=== PATIENT | female | born 2000 | race Caucasian/White ===

== ENCOUNTER 2019-12-17 15:55 | Outpatient (CLI) | payer MEDICAID, SELFPAY ==
[2019-12-17] VITALS (13 sets, daily range): BP systolic 0–145; BP diastolic 0–82; PULSE 87–107; RESP 18; TEMP 37.1; BMI 24.7
[2019-12-23 11:36] VITALS: BP 0/0
[2019-12-23 11:37] VITALS: BP 129/69; PULSE 74
== END 2019-12-17 17:55 | disposition home or self-care (01) ==
LOC: OPOB 16:16 → OBGYN 17:46 → OPOB 12-23 08:42
PROVIDERS: Visit Provider Family Medicine
DX: O26.899 Other specified pregnancy related conditions, unspecified trimester (principal); Z3A.00 Weeks of gestation of pregnancy not specified; R10.9 Unspecified abdominal pain
CPT/HCPCS: 59025; 99211

== ENCOUNTER 2019-12-23 20:00 | Inpatient (IN) | payer MEDICAID, SELFPAY ==
[2019-12-23] VITALS (82 sets, daily range): BP systolic 0–150; BP diastolic 0–82; PULSE 50–96; RESP 16–20; TEMP 36.6–36.9; O2SAT 75–99; BMI 24.7
[2019-12-23] MEDS: dextrose 5%-lactated ringers 1,000 ML 125 ML IV (13:03)
[2019-12-23] MEDS: fentaNYL 50 mcg/mL INJ 2mL IV ×2 (13:03→13:59)
[2019-12-23] MEDS: ondansetron 2 mg/ML SDV 2 mL 4 MG IVP (13:43)
[2019-12-23 13:45] LABS: Amphetamines Screen Urine Negative (Negative); Barbiturates Screen Urine Negative (Negative); Benzodiazepines Screen Urine Negative (Negative); Cocaine Screen Urine Negative (Negative); Opiate Screen Urine Negative (Negative); PCP Screen Urine Negative (Negative); THC Screen Urine Positive (Negative)
[2019-12-23 14:18] LABS: Basophils % 0.1 %; Eosinophils % 0.1 %; Hematocrit 37.5 % (37.0-47.0); Hemoglobin 12.2 g/dL (11.5-15.3); Lymphocytes # 1.6 10^3/uL (0.8-4.8); Lymphocytes % 11.5 %; Mean Corpuscular HGB Conc 32.5 g/dL (30.0-36.0); Mean Corpuscular Hemoglobin 28.8 pg (28.0-34.0); Mean Corpuscular Volume 88.4 fL (81-99); Mean Platelet Volume 11.9 fL (7.4-10.4); Monocytes # 0.5 10^3/uL (0.2-0.9); Monocytes % 3.7 %; Neutrophils # 11.5 10^3/uL (1.8-7.7); Neutrophils % 84.2 %; Nucleated Red Blood Cells % 0 %; Platelet Count 167 10^3/cmm (130-400); Red Blood Count 4.24 10^6/uL (4.1-5.3); Red Cell Distribution Width 13.1 % (12.1-15.1); White Blood Count 13.7 10^3/uL (4.0-10.0)
[2019-12-23] MEDS: lactated ringers 1,000 ML 999 ML IV ×2 (14:26→16:39)
--- NOTE | 2019-12-23 14:40 | P.ANESASSM_ITS ---
Pre-Anesthetic Assessment Pre-Anesthetic Assessment: Height/Weight: Height 1.52 m Weight 57.606 kg Pulse Resp BP Pulse Ox 52 L 18 114/63 98 12/23/19 15:29 12/23/19 13:59 12/23/19 15:29 12/23/19 15:28 Preop Diagnosis: IUP 40 1/7 weeks Proposed Procedure: Epidural Familial anesthetic complications: denies Was Beta Lucho taken within 24 hours: N/A Last intake: noon Social: Social History: Tobacco (3 per day) Exam: Pre-Anes Outpt Exam: alert, oriented x 3, clear to auscultation bilaterally and regular rate & rhythm Airway: Submandibular: WNL Cervical ROM: WNL MP: 1 Dentition: Chipped (very poor) History/ROS: No significant history except as noted Pulmonary: Pulmonary: None reported CV/HEM: CV/HEM: None reported : : None reported Hepatic: Hepatic: None reported GI: GI: GERD (ranitidine) Metabolic: Metabolic: None reported Musc/skel: Musc/skel: None reported Neuropsych: Neuropsych: None reported Anesthetic Plan: ASA status: 2 Anesthesia: Anesthesia Evaluation and Regional (specify below) (Labor epidural) Risk of > 500 ml blood loss (7ml/kg in children): No Meds/Allergies Current Medications: Current Medications Generic Name Dose Route Start Last Admin Trade Name Freq PRN Reason Stop Dose Admin Fentanyl 25 - 100 mcg 12/23/19 12:27 12/23/19 13:59 Sublimaze IV 50 mcg Q1H PRN Administration SEVERE PAIN Dextrose/Lactated Ringer's 1,000 mls @ 125 m ls/hr 12/23/19 12:30 12/23/19 13:03 Dextrose 5%-Lact ated Ringers IV 125 mls/hr .Q8H BELA Administration Ondansetron HCl 4 mg 12/23/19 12:27 12/23/19 13:43 Zofran IVP 4 mg Q4H PRN Administration NAUSEA AND VOMITI NG Data Anesthesia CBC & Chem 7: 12/23/19 13:52 Other Labs: Laboratory Results - last 48 hr 12/23/19 12/23/19 12:45 13:52 WBC 13.7 H RBC 4.24 Hgb 12.2 Hct 37.5 MCV 88.4 MCH 28.8 MCHC 32.5 RDW 13.1 Plt Count 167 MPV 11.9 H Neut % (Auto) 84.2 Lymph % (Auto) 11.5 Hettinger % (Auto) 3.7 Eos % (Auto) 0.1 Baso % (Auto) 0.1 Neut # (Auto) 11.5 H Lymph # (Auto) 1.6 Hettinger # (Auto) 0.5 Eos # (Auto) 0.0 Baso # (Auto) 0.0 Nucleated RBC % (auto) 0 Nucleated RBCs # 0.0 Urine Opiates Screen Negative Ur Barbiturates Screen Negative Ur Phencyclidine Scrn Negative Ur Amphetamines Screen Negative U Benzodiazepines Scrn Negative Urine Cocaine Screen Negative U Marijuana (THC) Screen Positive H Cardiac Studies: No Data to Display
--- NOTE | 2019-12-23 15:35 | ANES.PROC ---
Anesthesia Procedures Procedure/Date: 12/23/19 Epidural: Time Out Performed: Yes Consents Signed: Procedure Consent Consent: from patient Lumbar Level: L4-L5 Epidural position: sitting Epidural procedure: sterile prep of area, 1% lidocaine to numb the area, 18 g needle, negative for paresthesia passed, test dose given, 1.5% xylocaine 1:200k epi (5ml), placed PCEA, no systemic response, sterile dressing applied, L.U.D. no apparent complications and 0.2% Ropiavacaine @ mls/hr (13)
[2019-12-23] MEDS: alum-mag-hydroxide-sime 30 mL UDC PO (16:41)
--- NOTE | 2019-12-23 16:54 | PM.OBGYHP ---
Providers/Chief Complaint Chief Complaint: Contractions HPI HOURLY ASSOCIATE History of Present Illness Cheyenne Ayers is a 19 year old female 2 para 0-0-1-0 with an EDC of 12/22/2019 as determined by sure last menstrual period of 03/17/2019 and confirmed by 10-week ultrasound done 05/31/2019. She presents at 40-1/7-week gestation with complaint of contractions increasing in frequency and intensity. She is a patient of Dr. Rosenda Ivan and began her care during her first trimester and has been compliant. She has had a fairly normal until October 2019 when she was thought to have a small for gestational age fetus. Nonstress test and biophysical profiles have been performed, and most recent ultrasound revealed adequate growth for gestational age. Patient has not had any leakage of fluid but has had some bloody show. Present Details : 2 Para: 0 Date of Last Menstrual Period: 03/17/19 Calculated Date of Delivery: 12/22/19 Gestational Age Based on Last Menstrual Period: 40 Dating criteria OB: LMP confirmed by 1st trimester US care: good care Abnormal OB US findings: Small for gestational age October 2019 Obstetrical complications: none Medical complications OB: none Review of Systems Const: Denies: fever : Reports: vaginal bleeding (Just bloody show with the frequent contractions) and pelvic pain (Insistent with intermittent contractions, no pain between contractions) Medications/Allergies Home Medications Medication Instructions Recorded Confirmed Last Taken Type PNV cmb#95-ferrous fumarate-FA 1 tab PO DAILY 12/23/19 12/23/19 Unknown History [ Multivitamins] ranitidine HCl 150 mg PO BID 12/23/19 12/23/19 Unknown History Allergies Allergy/AdvReac Type Severity Reaction Status Date / Time pineapple Allergy ADR-Itching Verified 12/23/19 13:37 [facility] HOURLY ASSOCIATE Statuses (acute, chronic, etc) shown below reflect problem list status as previously entered and may not be historically accurate Medical History (Updated 12/23/19 @ 17:29 by Jeannette Ram MD) Migraines (Acute) Traumatic rupture of left biceps tendon (Acute) Underweight (Acute) Surgical History (Updated 12/23/19 @ 17:06 by Jeannette Ram MD) History of dilatation and curettage (Acute) Family History (Updated 02/06/20 @ 17:10 by Jeannette Ram MD) Mother Seizure disorder Social History (Updated 12/23/19 @ 16:25 by Marcia Mathias RN) Smoking and tobacco status: current every day smoker cigarettes Packs smoked per day: 0.25 Number of cigarettes per day: 1-5 Quit status (tobacco): not considering quitting Second hand smoke exposure: Yes Smoking risk assessment/counseling performed?: Yes Alcohol intake: unknown Desire information about alcohol rehabilitation?: No Counseling given: No Substance/Drug Use: never Adopted: No Caregiver/support person: Yes Lives independently: No Household members: significant other and caregiver Marital status: Single Number of children: 0 Number of grandchildren: 0 service: No Current occupational status: unemployed Current occupational exposures/hazards: No Pets and animals: Yes (2 cats) Pets & animals: cat(s) History of recent travel: No Sexually active: Yes Current gender identity: Female Leslie/Adventism: Cheondoism Special leslie needs: No Agree to transfusion: Yes Financial difficulty paying for basics: Somewhat Hard History History 2 Term 0 Miscarriages/Ectopic 1 0 Living Children 0 Past Pregnancies Del. Date GA/Weeks Outcome Route Wt Inf Gender Labor Lgth Comp. Anesthesia Location Unknown 12 spontaneous Delivery Date: On 12/23/19 @ 17:19 Jeannette Ram 2014, patient needed a dilatation and curettage Vitals/I&O/Wt Last Vital Signs Pulse 67 12/23/19 16:43 Resp 18 12/23/19 13:59 BP 110/65 12/23/19 16:43 Pulse Ox 97 12/23/19 15:38 Weight last 48 hrs Weight 57.606 kg Weight 57.606 kg Physical Exam Narrative: EXAM NARRATIVE: heart tones have been category 1 with a normal baseline, moderate variability, many accelerations and no decelerations. Contractions were every 1 to 3 minutes and moderate to strong upon presentation and are currently every 1 to 2 minutes. Const: COMMON NORMALS: no apparent distress, oriented x3 and healthy appearing NUTRITIONAL APPEARANCE: underweight : MANUAL OB EXAM: dilated (1-1/2 to 2 cm dilated upon arrival this morning), effaced (Upon arrival this morning) 50%, station (Upon arrival this morning) high and other (Vertex) Neuro: COMMON NORMALS: oriented x3 Psych: COMMON NORMALS: mental status grossly normal, thought process normal, cooperative, affect normal, speech normal and activity/motor behavior normal SPEECH: Yes normal speech THOUGHT PROCESS: normal thought process Skin: RASHES: rashes noted (Lesions on trunk consistent with tinea versicolor) Data : 12/23/19 13:52 Other Labs: Blood type: A+ Antibody screen: Negative Hemoglobin: Initially 11.9 Platelets: Initially 239,000 Varicella: Immune Rubella: Immune RPR: Nonreactive Urine culture: Negative Urine drug screen: Initially negative in May 2019 however has been positive last month in clinic and here today for THC Hepatitis B surface antigen: Negative HIV screen: Negative TSH done first trimester: 1.32 GC/Chlamydia: Negative/negative 1 hour GTT: 91 Group B strep screen: Negative A&P Assessment and plan (1) 40 weeks gestation of : Status: Acute Code(s): Z3A.40 - 40 weeks gestation of (2) Spontaneous onset of labor: As patient is past her due date and is hector regularly, we kept her to observe for labor. Within a short period of time it was obvious that she had spontaneous onset of labor, and she was admitted for that. She desired something for pain and was initially given fentanyl per protocol in route to an epidural. She is currently comfortable with her epidural and has been progressing rapidly. She just recently experienced spontaneous rupture of membranes productive of a moderate amount of clear fluid. Status: Acute (3) Tobacco use during , antepartum: Status: Acute Code(s): O99.330 - Smoking (tobacco) complicating , unspecified trimester (4) Tinea versicolor: Plan to treat upon delivery with an antifungal cream such as Chlortrimazole twice daily for 10 to 14 days. Status: Acute Code(s): B36.0 - Pityriasis versicolor (5) Positive urine drug screen: Patient states that she does not use THC but lives in a household where members including father the baby used THC. She will need a DFS consultation. Status: Acute Code(s): R82.5 - Elevated urine levels of drugs, medicaments and biological substances Attestations Medical Necessity Statement*: As patient is in active spontaneous labor she needs inpatient hospitalization. Coding Level of Care Code Acute Director Of Accounts Payable for Navdeep Mcneill Diagnoses 40 weeks gestation of Z3A.40 Spontaneous onset of labor Tobacco use during , antepartum O99.330 Tinea versicolor B36.0 Positive urine drug screen R82.5
--- NOTE | 2019-12-23 17:47 | PC.NURSE ---
Dr. Randhawa notified at this time. Report given. Dr. Ram requested peds to take over care of baby.
[2019-12-23] MEDS: lidocaine 2% INJ 20 mL INJECTION (20:55)
--- NOTE | 2019-12-23 21:21 | PM.DELIVERY ---
 Delivery Note: Date of delivery: December 23, 2019 Pre-Delivery Course: Patient arrived this morning hector regularly and at the time was 1-1/2 to 2 cm dilated and 50% effaced. She received a few doses of fentanyl and was then 4 cm dilated and hector regularly. She experienced spontaneous rupture of membranes at approximately 1500, and it was productive of a moderate amount of clear fluid. She had received her epidural and become comfortable when she was about 6 to 7 cm dilated. She then gradually dilated until she was completely dilated just after 8 PM. Delivery: We began the active portion of the second stage of her labor at 2027, and she delivered a viable female infant at 2040. Head was straight OA. There was no nuchal cord. Bulb suctioning was done upon delivery of baby's head and then of baby's body. Baby was placed on maternal abdomen while the cord was clamped by myself after a delay of approximately 60 seconds. The cord was then cut by myself. Baby was taken to the warmer for routine resuscitative measures. Gentle traction was placed on the cord, and intravenous Pitocin was begun in routine doses. The placenta delivered intact at 2047. It a appeared quite mature and calcified but was otherwise normal. Uterine exploration revealed a moderate size clot which was manually extracted. Perineum and cervix were inspected and I found bilateral periurethral abrasions as well as a midline second-degree perineal laceration. The laceration was repaired with 2-0 chromic in standard 3 layer fashion with her epidural as anesthesia. Post-Delivery Status: Baby had Apgars of 9 at 1 minute and 10 at 5 minutes and weighed 5 pounds 7 ounces. Estimated blood loss 150 mL. Mother and baby are stable. A&P Assessment and plan (1) 40 weeks gestation of : Status: Acute Code(s): Z3A.40 - 40 weeks gestation of (2) Spontaneous onset of labor: Status: Resolved (3) Tobacco use during , antepartum: Status: Inactive Code(s): O99.330 - Smoking (tobacco) complicating , unspecified trimester (4) Tinea versicolor: Status: Acute Code(s): B36.0 - Pityriasis versicolor (5) Positive urine drug screen: Status: Acute Code(s): R82.5 - Elevated urine levels of drugs, medicaments and biological substances (6) Normal vaginal delivery of second : Routine orders Status: Acute Code(s): O80 - Encounter for full-term uncomplicated delivery (7) Second-degree perineal laceration, : Status: Acute Code(s): O70.1 - Second degree perineal laceration during delivery (8) Periurethral abrasion, delivered, current hospitalization: Status: Acute Code(s): O71.82 - Other specified trauma to perineum and vulva Coding Level of Care Code Acute Learning Coordinator for Chg Fwd Diagnoses 40 weeks gestation of Z3A.40 Spontaneous onset of labor Tobacco use during , antepartum O99.330 Tinea versicolor B36.0 Positive urine drug screen R82.5 Normal vaginal delivery of second O80 Second-degree perineal laceration, O70.1 Periurethral abrasion, delivered, current hospitalization O71.82
[2019-12-23] MEDS: oxytocin 30 UNIT/500 ML BAG 600 UNIT IV (21:37)
[2019-12-24] VITALS (8 sets, daily range): BP systolic 108–134; BP diastolic 68–82; PULSE 53–90; RESP 16–20; TEMP 36.7–36.9; O2SAT 98–99
[2019-12-24] MEDS: HYDROcodone-acetaminophen 5-325 mg Tablet PO (02:47)
--- NOTE | 2019-12-24 06:18 | XR_ITS ---
WS: [id number] Sacrum and coccyx, 2 views, 12/24/2019 Clinical Data: Rectal pain Comparison: None. Findings: No fractures or dislocations are seen. The SI joints and pubic symphysis are unremarkable. No bone de struction or erosion is seen. The bladder is distended. XR/XR coccyx 2V [id number] Impression: Negative sacrum and coccyx. Distended bladder.
[2019-12-24] MEDS: docusate sodium 100 mg Capsule PO ×2 (09:46→19:15)
[2019-12-24] MEDS: prenatal vitamin Capsule 1 CAP PO (09:46)
[2019-12-24 10:48] LABS: Hematocrit 32.7 % (37.0-47.0); Hemoglobin 10.6 g/dL (11.5-15.3); Mean Corpuscular HGB Conc 32.4 g/dL (30.0-36.0); Mean Corpuscular Hemoglobin 29.8 pg (28.0-34.0); Mean Corpuscular Volume 91.9 fL (81-99); Mean Platelet Volume 11.9 fL (7.4-10.4); Platelet Count 161 10^3/cmm (130-400); Red Blood Count 3.56 10^6/uL (4.1-5.3); Red Cell Distribution Width 13.4 % (12.1-15.1); White Blood Count 16.7 10^3/uL (4.0-10.0)
--- NOTE | 2019-12-24 17:57 | PM.OBGYDC ---
Discharge Providers [employer] Date of Admission: 12/23/19 20:00 Date of Discharge: 12/24/19 Attending Provider at Admission: Jeannette Ram MD Attending Provider at Discharge: Jeannette Ram MD Primary [employer]: Rosenda Ivan DO Diagnoses at Discharge Discharge Diagnosis (1) 40 weeks gestation of : Status: Acute (2) Spontaneous onset of labor: Status: Resolved (3) Tobacco use during , antepartum: Status: Inactive (4) Tinea versicolor: Status: Acute (5) Positive urine drug screen: Status: Acute (6) Normal vaginal delivery of second : Status: Acute (7) Second-degree perineal laceration, : Status: Acute (8) Periurethral abrasion, delivered, current hospitalization: Status: Acute Reason for Visit Reason for Visit: Reason For Visit: Contractions Hospital Course Hospital Course: Patient arrived the morning of 12/23/2019 hector regularly with increasing frequency and intensity. Initially her cervix was 1 1/2-2 cm and 50% effaced, unchanged from her visit 6 days prior to [facility] [place] dept. However, she was now 40 1/7 weeks gestation with a possible SGA fetus, so she was admitted and given a dose of fentanyl IV for pain. She quickly dilated to 4cm, received an epidural and became comfortable. She experienced SROM and then fairly rapidly dilated to complete. After a brief active portion of the second stage of labor she delivered a viable female infant weighing 5#7oz. She sustained bilateral periurethral abrasions and a second degree perineal laceration which was promptly repaired. Post day 1 she had pain in her rectal area. Palpation of her coccyx reproduced the pain, and she was tender in that area. Xray of the coccyx was negative for fx or dislocation. She also had inflamed external hemorrhoids. Tucks pads helped tremendously. We discussed post contraception, and she plans an IUD through Dr. Ivan. is going well, and bleeding and cramping are moderate. She was also started on clotrimazole for her tinea versicolor. Discharge Summary: as above Information Peripartum Data: Infant Delivery Method: Vaginal Physical Exam Const: COMMON NORMALS: no apparent distress GENERAL APPEARANCE: cooperative NUTRITIONAL APPEARANCE: underweight ORIENTATION/CONSCIOUSNESS: Yes awake, Yes oriented to person, Yes oriented to place and Yes oriented to time Resp: COMMON NORMALS: normal respiratory effort and clear to auscultation bilaterally AUSCULTATION: clear to auscultation bilaterally Cardio: COMMON NORMALS: regular rate, regular rhythm, no gallops, no clicks, no murmurs, no rub and peripheral pulses 2+ throughout RATE: regular rate RHYTHM: regular rhythm PERIPHERAL PULSES: pulses 2+ throughout GI: RECTAL EXAM: external hemorrhoid(s) (no thrombosis) : UTERUS PALPATION: No uterus tender and Yes other OB (fundus 2 fingersbreadth below the umbilicus and firm) Extremity: COMMON NORMALS: no pedal edema Neuro: SENSORIUM/ORIENTATION: Yes oriented to person, Yes oriented to place and Yes oriented to time Urinary Catheter Management^: Mast: Cath Placed During This Visit: yes, but has since been removed by the nurse Reason for Continuing Indwelling Catheter: Acute Urinary Retention or Obstruction Urinary Catheter Date of Insertion: 12/23/19 Urinary Catheter Time of Insertion: 16:00 Date Urinary Catheter Removed: 12/23/19 Time Urinary Catheter Discontinued: 20:00 Discharge Data Data Completed and Pending: Completed Studies During Hospitalization Category Date Time Status XR coccyx 2V 7222 0 Routine Exams 12/24/19 06:18 Completed Labs from last 24 hours 12/24/19 09:54 WBC 16.7 H RBC 3.56 L Hgb 10.6 L Hct 32.7 L MCV 91.9 MCH 29.8 MCHC 32.4 RDW 13.4 Plt Count 161 MPV 11.9 H Vitals: Last Vital Signs Temp 98.4 F 12/24/19 02:30 Pulse 53 L 12/24/19 04:45 Resp 16 12/24/19 04:45 BP 111/72 12/24/19 04:45 Pulse Ox 97 12/23/19 15:38 Discharge Plan Discharge Patient Disposition: Home, Self-Care Condition: Stable Prescriptions: New docusate sodium 100 mg Capsule 100 mg PO BID 10 Days Qty: 20 RF: 1 ibuprofen 800 mg Tablet 800 mg PO TID Qty: 30 RF: 1 clotrimazole 1 % Cream 1 applic topical BID 10 Days Qty: 45 RF: 1 Continued Multivitamins 28 mg iron- 800 mcg Tablet 1 tab PO DAILY RF: 0 ranitidine HCl 150 mg Tablet 150 mg PO BID RF: 0 Discharge Orders: Discharge Order (Routine); Ordered 12/24/19 Ordered By: Jeannette Ram Referrals: Rosenda Ivan DO [Staff Physician] - 6 Weeks Discharge Diet: Usual diet Discharge Activity: Resume usual activity Patient Instructions: Vitamins (By mouth), Breast Care for the Breast Feeding Mother (DC), Vaginal Delivery (DC), Vaginal Delivery (GEN), OB Discharge Report, OB Food/Drug Interaction Guide, OB Care at Home, OB Home Care, OB Proud Parent Packet, OB Vaginal Deliveries Discharge Attestations [employer] Time Spent in Discharge Care*: less than 30 min Specific Discharge Activities: Specific discharge activities: educating patient, documenting/other paperwork and evaluating patient/reviewing data Status at Discharge: Cognitive status at discharge: cognitively intact, Behavioral status at discharge: cooperative, Functional status at discharge: independent ambulation Overall status at discharge: patient is progressing back to baseline Coding Level of Care Code Acute Book[employer] Driver for Chg Fwd Diagnoses 40 weeks gestation of Z3A.40 Spontaneous onset of labor Tobacco use during , antepartum O99.330 Tinea versicolor B36.0 Positive urine drug screen R82.5 Normal vaginal delivery of second O80 Second-degree perineal laceration, O70.1 Periurethral abrasion, delivered, current hospitalization O71.82
[2019-12-24] MEDS: clotrimazole 1% cream 30 gm 1 APPLIC TOPICAL (19:15)
== END 2019-12-24 23:30 | disposition home or self-care (01) | DRG 807 ==
LOC: OBGYN 12-24 08:11 → OPOB 12-24 08:11
PROVIDERS: Admitting Provider Family Medicine; Visit Provider Family Medicine
DX: O99.334 Smoking (tobacco) complicating childbirth (principal); Z37.0 Single live birth; F17.210 Nicotine dependence, cigarettes, uncomplicated; Z3A.40 40 weeks gestation of pregnancy; O70.1 Second degree perineal laceration during delivery; B36.0 Pityriasis versicolor; O75.89 Other specified complications of labor and delivery; O71.82 Other specified trauma to perineum and vulva; O99.324 Drug use complicating childbirth; F19.90 Other psychoactive substance use, unspecified, uncomplicated
CPT/HCPCS: 12345; 36415; 51702; 59025; 59409; 72220; 80307; 85025; 85027; 96360; 96361; 96374; 98960; 99211; A9270; J2001; J2405; J2795; J3010

== ENCOUNTER 2020-01-04 01:12 | Inpatient (IN) | payer MEDICAID, SELFPAY ==
[2020-01-04] VITALS (25 sets, daily range): BP systolic 99–139; BP diastolic 55–102; PULSE 60–114; RESP 16–20; TEMP 36.4–37.2; O2SAT 95–99; BMI 26.4; BMI 19.8
--- NOTE | 2020-01-04 01:24 | US_ITS ---
WS: [id number] PELVIC ULTRASOUND REASON FOR VISIT: Pain TECHNIQUE: Grayscale and Doppler transabdominal ultrasound of the pelvis. FINDINGS: Uterus measures 10.7 cm x 8.6 cm x 9.0 cm, right ovary measures 2.9 cm x 3.0 cm x 2.6 cm, and left ov amberly measures 2.9 cm x 2.6 cm x 2.3 cm. A large clot appears to be evident in the region of the vagina. There is clot or fluid seen along the endometrial canal. US/US pelvic complete* [id number] IMPRESSION: Subinvolution of the uterus. Endometrium shows blood and clots. There appears to be blood clots in the vagina area.
--- NOTE | 2020-01-04 01:31 | ED_ITS ---
Entered by Candi Stovall, acting as scribe for Odessa Caballero Galileo Jan 04, 2020 01:12 HPI - Female Genitourinary General: Chief complaint: Urogenital-Female Stated complaint: excessive bleeding Time Seen by Provider: 01/04/20 01:25 Source: patient and family Mode of arrival: ambulatory History of Present Illness: HPI Narrative: 19 y/o female presents to the ED with complaint of continued vaginal bleeding, post . Pt states she had a vaginal delivery 12/23/17 ( Dr. Ram). She stopped bleeding 2 days ago and then started again tonight. She has been passing clots and has had lightheadedness. MD elicited complaint: vaginal bleeding Onset (ago): day(s) (2) Location of symptoms: vaginal Severity: moderate Consistency: progressively worsening Vaginal bleeding: clots Relieving factors: none Associated symptoms: Reports weakness; Deny nausea or syncope Patient : No Date of Last Menstrual Period: 03/17/19 Review of Systems General: Reports: other (negative unless marked) Const: Denies: fever, chills, body aches, malaise or diaphoresis Eyes: Denies: change in vision or blurry vision ENMT: Denies: throat pain, painful swallowing, hoarseness, ear pain, ear discharge, Change in hearing or nasal discharge Card: Denies: chest pain, palpitations, irregular heart rhythm, syncope, pre- syncope, shortness of breath on exertion or shortness of breath when lying down Resp: Denies: shortness of breath, productive cough, non-productive cough, wheezing, coughing up blood or chest congestion GI: Denies: nausea, vomiting, vomiting blood, coffee grounds in vomit, diarrhea, constipation, cramping, blood in stool or black tarry stool Musc: Denies: neck pain, back pain, extremity pain, extremity swelling, joint pain, joint swelling, joint warmth or joint stiffness Skin/Breast: Denies: rash, skin tenderness or yellow skin Neuro: Denies: numbness in extremities, weakness in extremities, changes in sensation, lack of coordination, difficulty walking, dizziness, vertigo or confusion Endo: Denies: excessive thirst, tired all the time, cold intolerance, excessive sweating, flushing or hot flashes Hernando/Lymph: Denies: easy bruising, easy bleeding, petechiae or enlarged lymph nodes All/Imm: Denies: hives, throat swelling, tongue swelling, facial swelling or acute wheezing PFSH ED PFSH: Medical History Migraines Traumatic rupture of left biceps tendon Underweight Surgical History History of dilatation and curettage Family History Mother Seizure disorder Social History Smoking and tobacco status: former smoker Quit status (tobacco): not considering quitting Second hand smoke exposure: Yes Smoking risk assessment/counseling performed?: Yes Alcohol intake: unknown Desire information about alcohol rehabilitation?: No Counseling given: No Adopted: No Caregiver/support person: Yes Lives independently: No Household members: significant other and caregiver Marital status: Single Number of children: 0 Number of grandchildren: 0 service: No Current occupational status: unemployed Current occupational exposures/hazards: No Pets and animals: Yes (2 cats) Pets & animals: cat(s) History of recent travel: No Sexually active: Yes Current gender identity: Female Leslie/Restoration: Shinto Special leslie needs: No Agree to transfusion: Yes Financial difficulty paying for basics: Somewhat Hard Female Reproductive History: Date of last menstrual period: 03/17/19 Physical Exam Const: COMMON NORMALS: oriented x3 EXAM LIMITATIONS: no altered mental status GENERAL APPEARANCE: cooperative, well kempt and well developed ORIENTATION/CONSCIOUSNESS: Yes awake HENMT: COMMON NORMALS: normocephalic, head/scalp atraumatic, hearing grossly normal bilaterally, external ears normal, EAC's normal, external nose normal and moist oral mucous membranes HEAD & SCALP: normal to inspection, normocephalic and atraumatic FACE & SINUS: normal facial exam and face symmetric NOSE: external nose normal and nares normal EXTERNAL EAR: Yes external ears normal EXTERNAL AUDITORY CANAL: EAC's normal MOUTH: oral and palatal mucosa normal and tongue normal Eye: COMMON NORMALS: PERRL, EOMs intact bilaterally, conjunctivae normal and no scleral icterus GENERAL EYE: normal appearance of both eyes and normal light reflex CONJUNCTIVA: Yes conjunctivae normal SCLERA: sclerae normal CORNEA: Yes corneas normal PUPIL: Yes PERRL DIRECT OPHTHALMOSCOPY: Yes normal light reflex Neck/C-Spine: COMMON NORMALS: full ROM, no lymphadenopathy, supple, no meningeal signs and no JVD GENERAL: Yes normal visual inspection and Yes trachea midline CERVICAL SPINE: Yes cervical ROM normal Chest: COMMONS NORMALS: inspection of chest normal and palpation of chest normal Resp: COMMON NORMALS: normal respiratory effort, no retractions, no use of accessory muscles and clear to auscultation bilaterally EFFORT & INSPECTION: Yes able to speak in complete sentences AUSCULTATION: clear to auscultation bilaterally Cardio: COMMON NORMALS: no JVD, regular rate, regular rhythm, S1 normal heart sound, S2 normal heart sound, no gallops, no clicks, no murmurs and no rub JUGULAR VENOUS DISTENTION: no JVD RATE: regular rate RHYTHM: regular rhythm HEART SOUNDS: S1 normal and S2 normal GI: COMMON NORMALS: soft to palpation, non-tender, no hepatosplenomegaly and no masses INSPECTION: Yes normal to inspection PALPATION: Yes soft and Yes no hepatosplenomegaly Extremity: COMMON NORMALS: normal to inspection, full ROM, normal capillary refill, no joint enlargement, no clubbing, cyanosis or edema and no calf tenderness Neuro: COMMON NORMALS: oriented x3, CN's II-XII intact bilaterally, moves all extremities, no focal motor deficits and no sensory deficits noted MENINGEAL SIGNS: Yes no meningeal signs Psych: COMMON NORMALS: mental status grossly normal, thought process normal, cooperative, affect normal, speech normal and activity/motor behavior normal APPEARANCE: Yes well kempt SPEECH: Yes normal speech THOUGHT PROCESS: normal thought process Skin: COMMON NORMALS: no rashes or lesions noted, skin turgor normal, no jaundice, no petechiae and no mottling GENERAL SKIN EXAM: no rashes or lesions noted and turgor normal Course ED course: 223 - Spoke with Dr. Ram who referred me to the OB-JUNIOR GRAPHIC DESIGNER utilization supervisor. 235 - Discussed case with Dr. Ann. Per his instructions, will start on 10 units Pitocin and 1000cc NS. Vital Signs: Vital signs: Vital Signs Temperature 97.8 F 01/04/20 01:31 Pulse Rate 108 H 01/04/20 01:31 Respiratory Rate 16 01/04/20 01:31 Blood Pressure 139/102 01/04/20 01:31 Pulse Oximetry 97 01/04/20 01:31 MDM - Female MDM Narrative: Medical decision making narrative: Cheyenne comes in with heavy vaginal bleeding. I reviewed the case with Dr. Ann who wanted to evaluate the patient himself as she had had a tear and had stitches come out. After seeing and evaluating her he wants to take her to the operating room for repair. She will then go to labor and delivery to recuperate. Lab Data: Attestation: I reviewed the patient's lab results. Labs: Lab Results 01/04/20 01/04/20 01/04/20 Range/Units 01:42 01:42 01:42 WBC 7.7 (4.0-10.0) 10^3/ uL RBC 4.51 (4.1-5.3) 10^6/u L Hgb 12.7 (11.5-15.3) g/dL Hct 40.7 (37.0-47.0) % MCV 90.2 (81-99) fL MCH 28.2 (28.0-34.0) pg MCHC 31.2 (30.0-36.0) g/dL RDW 14.2 (12.1-15.1) % Plt Count 386 (130-400) 10^3/c mm MPV 9.3 (7.4-10.4) fL Neut % (Auto) 61.9 % Lymph % (Auto) 31.4 % [place] % (Auto) 4.6 % Eos % (Auto) 1.3 % Baso % (Auto) 0.4 % Neut # (Auto) 4.8 (1.8-7.7) 10^3/u L Lymph # (Auto) 2.4 (0.8-4.8) 10^3/u L [place] # (Auto) 0.4 (0.2-0.9) 10^3/u L Eos # (Auto) 0.1 (0.0-0.8) 10^3/u L Baso # (Auto) 0.0 (0.0-0.1) 10^3/u L Nucleated RBC % (a uto) 0 % Nucleated RBCs # 0.0 /100WBC PT (10.5-13.3) SECO NDS INR (0.8-1.2) APTT (23.9-36.7) SECO NDS Sodium 140 (136-145) mmol/L Potassium 3.6 (3.5-5.1) mmol/L Chloride 105 (98-107) mmol/L Carbon Dioxide 20 L (22-29) mmol/L Anion Gap 18.6 (5-19) BUN 17 (6-20) mg/dL Creatinine 0.6 (0.5-0.9) mg/dL GFR Calculation 126.2 (90-130) mL/min Glucose 113 (65-115) mg/dL Calcium 9.9 (8.5-10.5) mg/dL Total Bilirubin 0.3 (0.15-1.2) mg/dL AST 24 (0-32) U/L ALT 14 (0-33) U/L Alkaline Phosphata se 223 H (35-105) IU/L Total Protein 8.2 (6.6-8.7) g/dL Albumin 4.2 (3.5-5.2) g/dL Globulin 4.0 (1.3-4.6) g/dL Blood Type A Positive Antibody Screen Negative 01/04/20 Range/Units 01:42 WBC (4.0-10.0) 10^3/ uL RBC (4.1-5.3) 10^6/u L Hgb (11.5-15.3) g/dL Hct (37.0-47.0) % MCV (81-99) fL MCH (28.0-34.0) pg MCHC (30.0-36.0) g/dL RDW (12.1-15.1) % Plt Count (130-400) 10^3/c mm MPV (7.4-10.4) fL Neut % (Auto) % Lymph % (Auto) % [place] % (Auto) % Eos % (Auto) % Baso % (Auto) % Neut # (Auto) (1.8-7.7) 10^3/u L Lymph # (Auto) (0.8-4.8) 10^3/u L [place] # (Auto) (0.2-0.9) 10^3/u L Eos # (Auto) (0.0-0.8) 10^3/u L Baso # (Auto) (0.0-0.1) 10^3/u L Nucleated RBC % (a uto) % Nucleated RBCs # /100WBC PT 13.30 (10.5-13.3) SECO NDS INR 0.98 (0.8-1.2) APTT 28.8 (23.9-36.7) SECO NDS Sodium (136-145) mmol/L Potassium (3.5-5.1) mmol/L Chloride (98-107) mmol/L Carbon Dioxide (22-29) mmol/L Anion Gap (5-19) BUN (6-20) mg/dL Creatinine (0.5-0.9) mg/dL GFR Calculation (90-130) mL/min Glucose (65-115) mg/dL Calcium (8.5-10.5) mg/dL Total Bilirubin (0.15-1.2) mg/dL AST (0-32) U/L ALT (0-33) U/L Alkaline Phosphata se (35-105) IU/L Total Protein (6.6-8.7) g/dL Albumin (3.5-5.2) g/dL Globulin (1.3-4.6) g/dL Blood Type Antibody Screen Imaging Data: US: My impression: Ultrasound pelvis -please see formal report. Discharge Plan Discharge Patient Disposition: Placed in Observation Clinical Impression: Vaginal bleeding Condition: Stable Coding Level of Care Code ED Commercial Green Building Designer for Chg Fwd Exam Comprehensive The documentation recorded by the Wilman olivia Ashley, accurately reflects the service I personally performed and the decisions made by Ada coulter Eli N Jan 04, 2020 01:12
[2020-01-04 01:51] LABS: Basophils % 0.4 %; Eosinophils # 0.1 10^3/uL (0.0-0.8); Eosinophils % 1.3 %; Hematocrit 40.7 % (37.0-47.0); Hemoglobin 12.7 g/dL (11.5-15.3); Lymphocytes # 2.4 10^3/uL (0.8-4.8); Lymphocytes % 31.4 %; Mean Corpuscular HGB Conc 31.2 g/dL (30.0-36.0); Mean Corpuscular Hemoglobin 28.2 pg (28.0-34.0); Mean Corpuscular Volume 90.2 fL (81-99); Mean Platelet Volume 9.3 fL (7.4-10.4); Monocytes # 0.4 10^3/uL (0.2-0.9); Monocytes % 4.6 %; Neutrophils # 4.8 10^3/uL (1.8-7.7); Neutrophils % 61.9 %; Nucleated Red Blood Cells % 0 %; Platelet Count 386 10^3/cmm (130-400); Red Blood Count 4.51 10^6/uL (4.1-5.3); Red Cell Distribution Width 14.2 % (12.1-15.1); White Blood Count 7.7 10^3/uL (4.0-10.0)
[2020-01-04 01:59] LABS: INR 0.98 (0.8-1.2)
[2020-01-04 02:00] LABS: Partial Thromboplastin Time 28.8 SECONDS (23.9-36.7)
[2020-01-04 02:05] LABS: Alanine Aminotransferase 14 U/L (0-33); Albumin Level 4.2 g/dL (3.5-5.2); Alkaline Phosphatase 223 IU/L (35-105); Anion Gap 18.6 (5-19); Aspartate Amino Transferase 24 U/L (0-32); Blood Urea Nitrogen 17 mg/dL (6-20); Calcium 9.9 mg/dL (8.5-10.5); Carbon Dioxide 20 mmol/L (22-29); Chloride 105 mmol/L (98-107); Glomerular Filtration Rate 126.2 mL/min (90-130); Glucose 113 mg/dL (65-115); Potassium 3.6 mmol/L (3.5-5.1); Sodium 140 mmol/L (136-145); Total Bilirubin 0.3 mg/dL (0.15-1.2); Total Protein 8.2 g/dL (6.6-8.7)
[2020-01-04] MEDS: morphine 4 mg/mL SDV 1 mL IVP (03:04)
[2020-01-04] MEDS: ondansetron 2 mg/ML SDV 2 mL 4 MG IVP (03:04)
[2020-01-04] MEDS: sodium chloride 0.9% 1,000 ML 999 ML IV (03:04)
--- NOTE | 2020-01-04 03:46 | PM.OBGYHP ---
Providers/Chief Complaint Admitting Physician: Dr. Raciel Ann Primary PHYSICAL SCIENCE TEACHER: Dr. Ram Primary Care Provider: Dr. Ram Chief Complaint: excessive bleeding HPI PHYSICAL SCIENCE TEACHER History of Present Illness Cheyenne Ayers is a 19 year old female lady status post spontaneous vaginal delivery of viable female infant at this institution on 23 December 2019. Patient presented to emergency department this evening/early a.m. with onset of intense heavy vaginal bleeding approximately 2 hours prior to arrival. States that she has been passing large clots. Upon coming to the ED she is noted to have pulse with activity up into the 140s and slightly lightheaded when getting up and going to the bathroom. Continues to be passing clots at this time. Patient denies any fevers chills headaches visual changes or other issues. Stated that she had been doing well until this a.m. Denies any problems or changes with her bowels. She is nursing her baby is doing well Initial hemoglobin was 12 ultrasound reviewed by myself question where there is a small amount of debris versus clot within the uterine cavity. It is inspection of vagina and cervix in the ED is somewhat limited however there is no vaginal laceration noted there is a left vaginal sidewall hematoma cervix without laceration cervix is closed. There is a small perineal laceration that is open question secondary to exam. Approximately 125 cc of clot and blood was noted to be in vaginal vault and evacuated time exam. Bimanual examination shows the uterus to be approximately 14 weeks size firm and midline slightly tender. Present Details Date of Last Menstrual Period: 03/17/19 Calculated Date of Delivery: 12/22/19 Gestational Age Based on Last Menstrual Period: 41 Review of Systems Const: Denies: fever, chills, body aches or change in appetite Eyes: Denies: change in vision ENMT: Denies: throat pain or painful swallowing Card: Denies: chest pain, palpitations, irregular heart rhythm or swelling of feet/ankles Resp: Denies: shortness of breath, productive cough or non-productive cough GI: Denies: abdominal pain, nausea, vomiting, vomiting blood or painful bowel movements : Denies: flank pain, difficulty urinating, painful urination, urinary frequency, urinary urgency or change in menstrual flow Musc: Denies: back pain, extremity pain or extremity swelling Skin/Breast: Denies: rash Neuro: Denies: headache, numbness in extremities or weakness in extremities Psych: Denies: anxiety or depression Endo: Denies: excessive urination, cold intolerance or excessive sweating Hernando/Lymph: Denies: easy bruising or easy bleeding All/Imm: Denies: hives Medications/Allergies Allergies Allergy/AdvReac Type Severity Reaction Status Date / Time pineapple Allergy ADR-Itching Verified 12/23/19 13:37 [facility] PHYSICAL SCIENCE TEACHER Medical History Migraines Traumatic rupture of left biceps tendon Underweight Surgical History History of dilatation and curettage Family History Mother Seizure disorder Social History Smoking and tobacco status: former smoker Quit status (tobacco): not considering quitting Second hand smoke exposure: Yes Smoking risk assessment/counseling performed?: Yes Alcohol intake: unknown Desire information about alcohol rehabilitation?: No Counseling given: No Adopted: No Caregiver/support person: Yes Lives independently: No Household members: significant other and caregiver Marital status: Single Number of children: 0 Number of grandchildren: 0 service: No Current occupational status: unemployed Current occupational exposures/hazards: No Pets and animals: Yes (2 cats) Pets & animals: cat(s) History of recent travel: No Sexually active: Yes Current gender identity: Female Leslie/Alevism: Restorationist Special leslie needs: No Agree to transfusion: Yes Financial difficulty paying for basics: Somewhat Hard History History 2 Term 0 Miscarriages/Ectopic 1 0 Living Children 0 Past Pregnancies Del. Date GA/Weeks Outcome Route Wt Inf Gender Labor Lgth Comp. Anesthesia Location Unknown 12 spontaneous Delivery Date: On 12/23/19 @ 17:19 Jeannette Ram 2014, patient needed a dilatation and curettage Vitals/I&O/Wt Last Vital Signs Temp 97.8 F 01/04/20 01:31 Pulse 108 H 01/04/20 01:31 Resp 16 01/04/20 01:31 BP 139/102 01/04/20 01:31 Pulse Ox 97 01/04/20 01:31 Weight last 48 hrs Weight 54.431 kg Weight 61.235 kg Physical Exam Narrative: EXAM NARRATIVE: Alert and oriented no acute distress somewhat anxious thin white female laying in ED bed. Holding baby in her arms. Skin is generally clear HEENT grossly normal Neck supple nontender nodes no masses Lungs clear to auscultation Heart regular sinus rhythm increased rate Abdomen flat soft nontender uterus is palpable 12 to 14 weeks midline slightly tender to deep palpation. Pelvic examination: Pelvic examination done in ED bed somewhat limited due to visualization. EXT/BUS grossly normal. Large clot noted at the introitus Vaginal vault with use of plastic speculum the vaginal vault was inspected upon inserting a vault there is a large amount of blood noted in vaginal vault with clots. And pooling of bright red blood in the upper vault. Blood is evacuated no obvious lacerations of the vagina are noted there is a 2 to 3 cm old hematoma along the left vaginal sidewall in the mid vagina. Cervix appears to be multiparous unremarkable no lacerations no active bleeding from the cervix at this time. Bimanual examination does show the uterus to be 12 to 14-week size midline slightly tender to palpation it is firm. Unable to actively express blood from uterus at this time. Adnexa without masses nontender Extremities are grossly intact Neurologic exam shows normal gait Data : 01/04/20 01:42 01/04/20 01:42 A&P Assessment and plan (1) hemorrhage: Status: Acute Code(s): O72.1 - Other immediate hemorrhage Attestations Medical Necessity Statement*: Patient is admitted for hemorrhage to go for suction D&C anticipate observation Time Spent in Patient Care: 16 - 35 minutes (>than 50% of time spent in counselling and/or direct pt care on unit). Coding Level of Care Code Acute Kiln Operator for Chg Fwd History Expanded Problem Focused Exam Expanded Problem Focused Medical Decision Making Moderate Complexity Diagnoses hemorrhage O72.1 Time Spent (min) 30 Comment Greater than 50% of encounter time spent in chart preparation and counseling of patient for procedure.
--- NOTE | 2020-01-04 04:28 | ANES.PREANE2 ---
Pre-Anesthetic Assessment Pre-Anesthetic Assessment: Height/Weight: Height 1.52 m Weight 54.431 kg Temp Pulse Resp BP Pulse Ox 97.8 F 108 H 16 139/102 97 01/04/20 01:31 01/04/20 01:31 01/04/20 01:31 01/04/20 01:31 01/04/20 01:31 Preop Diagnosis: IUP 40 1/7 weeks Proposed Procedure: Operation Date: 01/04/20 04:40 Proposed Procedures p Dilation And Curettage (D&C)(Not Applicable) - Raciel Ann DO Familial anesthetic complications: Rough wake ups (crying after anestehsia) Last intake: NPO since 9:30 pm yesterday Social: Social History: Tobacco Packs per day: 0.5 ppd Exam: Pre-Anes Outpt Exam: alert, oriented x 3, clear to auscultation bilaterally and regular rate & rhythm Airway: Cervical ROM: WNL MP: 2 Dentition: Chipped Pulmonary: Pulmonary: URI (5 days before the 6th (her vaginal delivery) - back to normal now) CV/HEM: CV/HEM: None reported : : None reported Hepatic: Hepatic: None reported GI: GI: None reported Metabolic: Metabolic: None reported Musc/skel: Musc/skel: None reported Neuropsych: Neuropsych: None reported Anesthetic Plan: ASA status: 2E Anesthesia: General Meds/Allergies Current Medications: Current Medications Generic Name Dose Route Start Last Admin Trade Name Freq PRN Reason Stop Dose Admin Oxytocin 10 unit/ Sodium 1,001 mls @ 1,001 mls/hr 01/04/20 02:42 01/04/20 03:02 Chloride IV 1,001 mls/hr .Q1H PRN Administration BLEEDING PFSH Anesthesia PFSH: Medical History Migraines Traumatic rupture of left biceps tendon Underweight Surgical History History of dilatation and curettage Family History Mother Seizure disorder Social History Smoking and tobacco status: former smoker Quit status (tobacco): not considering quitting Second hand smoke exposure: Yes Smoking risk assessment/counseling performed?: Yes Alcohol intake: unknown Desire information about alcohol rehabilitation?: No Counseling given: No Adopted: No Caregiver/support person: Yes Lives independently: No Household members: significant other and caregiver Marital status: Single Number of children: 0 Number of grandchildren: 0 service: No Current occupational status: unemployed Current occupational exposures/hazards: No Pets and animals: Yes (2 cats) Pets & animals: cat(s) History of recent travel: No Sexually active: Yes Current gender identity: Female Leslie/Baptism: Adventist Special leslie needs: No Agree to transfusion: Yes Financial difficulty paying for basics: Somewhat Hard Female Reproductive History: Date of last menstrual period: 03/17/19 Data Anesthesia CBC & Chem 7: 01/04/20 01:42 01/04/20 01:42 Other Labs: Laboratory Results - last 48 hr 01/04/20 01/04/20 01/04/20 01:42 01:42 01:42 WBC 7.7 RBC 4.51 Hgb 12.7 Hct 40.7 MCV 90.2 MCH 28.2 MCHC 31.2 RDW 14.2 Plt Count 386 MPV 9.3 Neut % (Auto) 61.9 Lymph % (Auto) 31.4 [place] % (Auto) 4.6 Eos % (Auto) 1.3 Baso % (Auto) 0.4 Neut # (Auto) 4.8 Lymph # (Auto) 2.4 [place] # (Auto) 0.4 Eos # (Auto) 0.1 Baso # (Auto) 0.0 Nucleated RBC % (auto) 0 Nucleated RBCs # 0.0 PT INR APTT Sodium 140 Potassium 3.6 Chloride 105 Carbon Dioxide 20 L Anion Gap 18.6 BUN 17 Creatinine 0.6 GFR Calculation 126.2 Glucose 113 Calcium 9.9 Total Bilirubin 0.3 AST 24 ALT 14 Alkaline Phosphatase 223 H Total Protein 8.2 Albumin 4.2 Globulin 4.0 Blood Type A Positive Antibody Screen Negative 01/04/20 01:42 WBC RBC Hgb Hct MCV MCH MCHC RDW Plt Count MPV Neut % (Auto) Lymph % (Auto) [place] % (Auto) Eos % (Auto) Baso % (Auto) Neut # (Auto) Lymph # (Auto) [place] # (Auto) Eos # (Auto) Baso # (Auto) Nucleated RBC % (auto) Nucleated RBCs # PT 13.30 INR 0.98 APTT 28.8 Sodium Potassium Chloride Carbon Dioxide Anion Gap BUN Creatinine GFR Calculation Glucose Calcium Total Bilirubin AST ALT Alkaline Phosphatase Total Protein Albumin Globulin Blood Type Antibody Screen Cardiac Studies: No Data to Display
[2020-01-04] MEDS: fentaNYL 50 mcg/mL INJ 2mL IVP ×2 (05:32→05:37)
--- NOTE | 2020-01-04 05:33 | PM.OP ---
Operative Report Date of procedure: January 04, 2020 Pre-op Diagnosis: post hemorrhage delayed Post-op diagnosis: same Post-op Findings: Uterus firm 12 weeks size small amount of intrauterine tissue recovered. 3 cm left lower vaginal laceration repaired 3 cm left mid vaginal wall hematoma, old Procedure Done: 1 suction D&C 2 repair of vaginal laceration Implants: None Specimens removed/disposition: Retained products of conception Pathology: Retained products of conception Surgeon: Raciel Ann Anesthesia: General Estimated blood loss (mL): 50 IV fluids (mL): 300 Urine output (mL): 150 Complications: None Findings: Uterus sounded to 10 cm. Small amount of tissue recovered to pathology good uterine cry end of case 3 cm left lower lateral vaginal laceration 3 cm left mid vaginal hematoma, old Condition: stable Disposition: PACU Brief History: Patient now approximately 2 weeks status post vaginal delivery uncomplicated presented to the emergency room early this a.m. with heavy vaginal bleeding x2 hours. Examined in ED by myself 2 OR for D&C after receiving Cytotec and IV Pitocin as well as Ancef 2 g in ED Procedure: Patient was initially seen in emergency room. She was counseled prepped for surgery and taken to the operating room at [facility] for a suction D&C with repair of left lateral vaginal laceration. In the operating room she underwent general tracheal anesthesia was placed in dorsolithotomy position in Arslan stirrups vagina perineum prepped and draped in usual manner Mast catheter was in place. Timeout was performed. At this time Graves speculum was used to visualize the cervix there was minimal bleeding at this point cervix was identified grasped with a tenaculum and using Hegar dilators gently dilated to 10 mm. With the use of the Hegar is the uterus was gently sounded to 10 cm. At this point #10 suction curette was utilized to evacuate the remaining contents of the uterus. Small amount of tissue was recovered. Sharp curettage was performed with a large sharp curette good uterine cry was noted repeat suction curettage was performed. At this point cervix was observed no significant bleeding was noted. Attention was then directed to the left lateral vaginal sidewall laceration which I suspect was C second-degree laceration as described at delivery. This laceration was repaired with running 3-0 Vicryl in a locking stitch with good approximation. There was a small 3 cm old left vaginal sidewall hematoma during the repair this did extrude old dark blood. It was not aggressively drained. After further observation of the cervix it was no bleeding. Uterus palpated firm. Procedure was then terminated. Patient was awake and extubated transferred from the operating table to the [facility] taken to recovery room good condition. Mast catheter was removed prior to leaving the OR. Disposition I will keep her on the floor for observation overnight we will give her 3 more doses of Ancef she did receive 1 g of Zithromax in PACU. She will be allowed to continue to nurse her . Anticipate discharge home in 24 hours plan follow-up in the office in 2 weeks.
[2020-01-04] MEDS: ketorolac 30 mg/mL INJ IVP (05:45)
--- NOTE | 2020-01-04 08:04 | PC.NURSE ---
THIS MOM IS . BABY IS 11 DAYS OLD. MOM REPORTS BABY NURSING WELL, NO NIPPLE SORENESS, 8 FEEDINGS OR MORE IN 24 HOURS, FEEDINGS ARE ON DEMAND AND BABY FEEDS 10 MIN OR MORE. MOM REPORTS BABY WENT FOR HER 1 WEEK APT. AND WAS ALMOST BACK TO WEIGHT. MOM HAS PLENTIFUL MILK, SHE PUMPS 6 OZ PER DAY PLUS WHAT BABY TAKES.PROVIDED LITERATURE AND CONTACT INFORMATION AND SUPPORT LITERATURE.
[2020-01-04] MEDS: HYDROcodone-acetaminophen 5-325 mg Tablet PO (08:34)
[2020-01-04] MEDS: docusate sodium 100 mg Capsule PO (08:36)
[2020-01-04] MEDS: ceFAZolin 1,000 MG in sodium chloride 0.9% (plus) 50 ML 100 MG IV (10:45)
[2020-01-04] MEDS: dextrose 5%-lactated ringers 1,000 ML 125 ML IV (10:47)
[2020-01-04 11:34] LABS: Hematocrit 27.6 % (37.0-47.0); Hemoglobin 8.5 g/dL (11.5-15.3); Mean Corpuscular HGB Conc 30.8 g/dL (30.0-36.0); Mean Corpuscular Hemoglobin 29.4 pg (28.0-34.0); Mean Corpuscular Volume 95.5 fL (81-99); Mean Platelet Volume 9.7 fL (7.4-10.4); Platelet Count 283 10^3/cmm (130-400); Red Blood Count 2.89 10^6/uL (4.1-5.3); Red Cell Distribution Width 14.2 % (12.1-15.1); White Blood Count 7.4 10^3/uL (4.0-10.0)
[2020-01-04] MEDS: acetaminophen 325 mg Tablet 650 MG PO (16:03)
--- NOTE | 2020-01-04 17:44 | P.DS_ITS ---
Discharge Providers LIBRARY CLERICAL ASSISTANT Date of Admission: 01/04/20 05:20 Date of Discharge: 01/04/20 Attending Provider at Admission: Raciel Ann DO Attending Provider at Discharge: Raciel Ann DO Diagnoses at Discharge Discharge Diagnosis (1) hemorrhage: Status: Acute Problem details: This lady is seen in emergency department at the request of the emergency room physician and is admitted for suction D&C with expected 24-hour observation on floor. She appears to have good uterine atony is however having some fairly significant bleeding at this time acute onset this morning. I do not think that this is subinvolution more likely suspect that this is due to either retained POC's or endomyometritis. She does not have evidence of endomyometritis treated denies any known history of group B strep per previous STIs. She did not have prolonged rupture of membranes. Patient has been counseled understands the plan is to proceed with D&C and inspection of the vagina and perineum in the operating room with repair of any lacerations as necessary. She has been given Cytotec 800 mcg (given p.o. in the ED) and will receive IV Pitocin for uterotonic agents. If she continues to have bleeding despite adequate uterine tone who will give 1000 mg of tranexamic acid. Nursing supervisor food checkers and cashiers has been contacted OR is being readied. Permits have been signed (2) Anemia: Status: Acute Problem details: Patient's hemoglobin dropped from 12-8. She is up and about and asymptomatic we will discharge home on ferrous sulfate 325 3 times daily follow-up in 2 weeks check H&H then Reason for Visit Reason for Visit: Reason For Visit: excessive bleeding Hospital Course Hospital Course: Patient did well she was admitted for observation post her D&C no further active bleeding tolerating p.o. ambulatory and discharged home Discharge Summary: This young lady was admitted for hemorrhage del roximately 2 weeks after spontaneous vaginal delivery through the emergency department [facility]. Upon admission she was having active bleeding was treated with 800 mcg of Cytotec IV Pitocin and taken for D&C D&C did show small amount of tissue there also was a open vaginal laceration on the left inferior lateral vaginal sidewall unsure as if this was the second-degree perineal laceration repaired at delivery are new. It was repaired in the operating room with 3-0 Vicryl she also had a old 3 cm left lateral vaginal sidewall hematoma which was stable. She did well through observation on the floor and was discharged home evening of 01/04/2020 plan follow-up in 2 weeks activity as tolerated at home. Physical Exam Narrative: EXAM NARRATIVE: No acute distress resting in bed comfortable tolerating p.o. HEENT is grossly normal Abdomen soft nontender Extremities nontender Pelvic exam deferred: No active bleeding noted Urinary Catheter Management^: Mast: Cath Placed During This Visit: yes, but has since been removed by the nurse Reason for Continuing Indwelling Catheter: Required Immobilization for Trauma or Surgery or Anesthesia Urinary Catheter Date of Insertion: 01/04/20 Urinary Catheter Time of Insertion: 04:00 Date Urinary Catheter Removed: 01/04/20 Time Urinary Catheter Discontinued: 05:20 Discharge Data Data Completed and Pending: Completed Studies During Hospitalization Category Date Time Status US pelvic complet e* [id number] Urgent Ultrasound 01/04/20 01:24 Completed Pending at discharge Category Date Time Status Pathology: Surgic al [PTH] Routine Pth 01/04/20 05:24 Received Labs from last 24 hours 01/04/20 01/04/20 01/04/20 10:47 01:42 01:42 WBC 7.4 RBC 2.89 L Hgb 8.5 L D Hct 27.6 L D MCV 95.5 D MCH 29.4 MCHC 30.8 RDW 14.2 Plt Count 283 MPV 9.7 Neut % (Auto) Lymph % (Auto) [place] % (Auto) Eos % (Auto) Baso % (Auto) Neut # (Auto) Lymph # (Auto) [place] # (Auto) Eos # (Auto) Baso # (Auto) Nucleated RBC % (a uto) Nucleated RBCs # PT 13.30 INR 0.98 APTT 28.8 Sodium Potassium Chloride Carbon Dioxide Anion Gap BUN Creatinine GFR Calculation Glucose Calcium Total Bilirubin AST ALT Alkaline Phosphata se Total Protein Albumin Globulin Blood Type A Positive Antibody Screen Negative 01/04/20 01/04/20 01:42 01:42 WBC 7.7 RBC 4.51 Hgb 12.7 Hct 40.7 MCV 90.2 MCH 28.2 MCHC 31.2 RDW 14.2 Plt Count 386 MPV 9.3 Neut % (Auto) 61.9 Lymph % (Auto) 31.4 [place] % (Auto) 4.6 Eos % (Auto) 1.3 Baso % (Auto) 0.4 Neut # (Auto) 4.8 Lymph # (Auto) 2.4 [place] # (Auto) 0.4 Eos # (Auto) 0.1 Baso # (Auto) 0.0 Nucleated RBC % (a uto) 0 Nucleated RBCs # 0.0 PT INR APTT Sodium 140 Potassium 3.6 Chloride 105 Carbon Dioxide 20 L Anion Gap 18.6 BUN 17 Creatinine 0.6 GFR Calculation 126.2 Glucose 113 Calcium 9.9 Total Bilirubin 0.3 AST 24 ALT 14 Alkaline Phosphata se 223 H Total Protein 8.2 Albumin 4.2 Globulin 4.0 Blood Type Antibody Screen Procedures Performed: Suction D&C Repair of vaginal laceration Vitals: Last Vital Signs Temp 97.6 F 01/04/20 16:00 Pulse 65 01/04/20 16:00 Resp 16 01/04/20 16:00 BP 113/71 01/04/20 16:00 Pulse Ox 99 01/04/20 16:00 Discharge Plan Discharge Patient Disposition: Home, Self-Care Condition: Stable Prescriptions: New acetaminophen 325 mg Tablet 650 mg PO Q6H PRN (Reason: Mild Pain or Temp >100.4) Qty: 60 RF: 0 Continued PNV cmb#95-ferrous fumarate-FA [ Multivitamins] 28 mg iron- 800 mcg Tablet 1 tab PO DAILY RF: 0 ranitidine HCl 150 mg Tablet 150 mg PO BID RF: 0 ibuprofen 800 mg Tablet 800 mg PO TID Qty: 30 RF: 1 docusate sodium 100 mg Capsule 100 mg PO BID 10 Days Qty: 20 RF: 1 Dermoplast First Aid 20-0.2 % Aerosol 1 spray TOPICAL PRN RF: 0 Discontinued clotrimazole 1 % Cream 1 applic topical BID 10 Days Qty: 45 RF: 1 Discharge Orders: Discharge Order (Routine); Ordered 01/04/20 Ordered By: Raciel Ann Referrals: Raciel Ann DO [Physician] - 2 weeks Discharge Diet: Regular Discharge Activity: Increase activity as tolerated Discharge Attestations LIBRARY CLERICAL ASSISTANT Time Spent in Discharge Care*: less than 30 min Specific Discharge Activities: Specific discharge activities: educating patient, documenting/other paperwork and evaluating patient/reviewing data Status at Discharge: Cognitive status at discharge: cognitively intact , Behavioral status at discharge: cooperative , Functional status at discharge: independent ambulation Overall status at discharge: patient is back to baseline Coding Level of Care Code Acute Belt Molder for Chg Fwd History Problem Focused Exam Problem Focused Medical Decision Making Straight Forward Diagnoses hemorrhage O72.1 Anemia D64.9 Time Spent (min) 15 Comment 15 minutes spent with patient discussing discharge greater than 50% in mett-mv-nadu with consultations and education.
== END 2020-01-04 18:30 | disposition home or self-care (01) | DRG 769 ==
LOC: ER 03:51 → OBGYN 17:44
PROVIDERS: Admitting Provider Obstetrics & Gynecology Female Pelvic Medicine and Reconstructive Surgery; Emergency Provider Emergency Medicine; Visit Provider Obstetrics & Gynecology Female Pelvic Medicine and Reconstructive Surgery
PROC: 0KQM0ZZ Repair Perineum Muscle, Open Approach (ICD-10-PCS; principal; 2020-01-04 04:40)
DX: O72.2 Delayed and secondary postpartum hemorrhage (principal); Z87.891 Personal history of nicotine dependence; Z77.22 Contact with and (suspected) exposure to environmental tobacco smoke (acute) (chronic)
CPT/HCPCS: 12345; 36415; 51702; 76856; 80053; 85025; 85027; 85610; 85730; 86850; 86900; 88305; 96365; 96375; 99283; G0378; J0131; J0330; J0456; J0690; J1885; J2001; J2270; J2405; J2590; J2704; J3010; J3490; J7030; J7050

== ENCOUNTER 2020-01-04 01:12 | Emergency (ER) | payer MEDICAID, SELFPAY | END 2020-02-23 04:22 | disposition admitted as inpatient to this hospital (09) | LOC: ER 02-23 10:23 | PROVIDERS: Emergency Provider Emergency Medicine | DX: O72.2 Delayed and secondary postpartum hemorrhage (principal) | CPT/HCPCS: 51702; 76856; 80053; 85025; 85610; 85730; 86850; 86900; 96375; 99283; G0378; J0330; J0456; J0690; J1885; J2001; J2270; J2405; J2590; J2704; J3010; J3490; J7030; J7050 ==

== ENCOUNTER 2020-12-13 23:09 | Emergency (ER) | payer MEDICAID, SELFPAY ==
[2020-12-13 23:16] VITALS: BP 113/64; PULSE 88; RESP 16; TEMP 37.1; O2SAT 96; BMI 15.6
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
[2020-12-13 23:33] VITALS: BP 104/62; PULSE 84; RESP 16; O2SAT 97
--- NOTE | 2020-12-14 00:10 | PC.NURSE ---
Pt father in room with pt and pt child.
--- NOTE | 2020-12-14 00:57 | PC.NURSE ---
Report called to Grace Alex RN at [facility]. All questions answered.
[2020-12-14 01:18] VITALS: BP 121/75; PULSE 80; RESP 19; TEMP 37.1
[2020-12-14 02:09] VITALS: BP 102/63; PULSE 69; RESP 20; O2SAT 98
== END 2020-12-14 02:12 | disposition other institution (70) ==
PROVIDERS: Emergency Provider Emergency Medicine
DX: T76.21XA Adult sexual abuse, suspected, initial encounter (principal); Z87.891 Personal history of nicotine dependence
CPT/HCPCS: 12345; 99281

== ENCOUNTER 2022-03-28 18:35 | Emergency (ER) | payer MEDICAID, SELFPAY ==
--- NOTE | 2022-03-28 18:56 | USR_ITS ---
PROCEDURE INFORMATION: Exam: US Nonobstetric Pelvis; Complete Exam date and time: 03/28/2022 7:49 PM Age: 21 years old Clinical indication: Menstruation abnormalities; Excessive menstruation; With irregular cycle; Additional info: Bleeding TECHNIQUE: Imaging protocol: Transabdominal pelvic nonobstetric ultrasound. Complete exam. Real time ultrasound with image documentation. COMPARISON: US pelvic complete* [id number] 01/04/2020 2:24 AM FINDINGS: Uterus: Uterus measures 11.0 x 4.7 x 4.0 cm. Endometrium is thickened measuring 16 mm. Right ovary/adnexa: Right ovary measures 1.6 x 1.8 x 1.9 cm. Right ovary is unremarkable. There is normal Doppler flow in the right ovary. Left ovary/adnexa: Left ovary measures 2.0 x 1.7 x 1.9 cm and is unremarkable. There is normal Doppler flow in the left ovary. Intraperitoneal space: There is a small amount of free fluid in the cul-de-sac within physiologic limits. Urinary bladder: Normal. US/US pelvic complete* [id number] IMPRESSION: Thickened endometrium, otherwise unremarkable transabdominal ultrasound the pelvis.
[2022-03-28 19:43] VITALS: BP 134/85; PULSE 92; RESP 16; TEMP 37.2; O2SAT 98; BMI 16.6
--- NOTE | 2022-03-28 21:06 | W.ED.GENADLT ---
HPI - General Adult General: Chief complaint: Vaginal Bleeding Stated complaint: Excess bleeding from miscarriage-dr sent pt Time Seen by Provider: 03/28/22 20:46 Source: patient Mode of arrival: ambulatory Limitations: no limitations History of Present Illness: 21-year-old female states she had a miscarriage at roughly 9 weeks in early January. States she has been having issues with vaginal bleeding since and states she actually just finished a 10-day Provera treatment and today her bleeding is worsened states she is went through multiple pads an hour. She had some abdominal cramping denies any weakness denies any actual pain currently. No vomiting or diarrhea. Associated symptoms: Deny chest pain, dyspnea, headache(s), nausea, rash or vomiting Review of Systems Const: Denies: fever(s), chills, body aches or change in appetite Eyes: Denies: blurry vision or eye discomfort ENMT: Denies: throat pain or dental pain Card: Denies: chest pain Resp: Denies: dyspnea GI: Denies: abdominal pain, nausea, vomiting or diarrhea : Reports: vaginal bleeding Musc: Denies: neck pain or back pain Skin/Breast: Denies: rash Neuro: Denies: headache(s) Psych: Denies: depression Hernando/Lymph: Denies: easy bruising All/Imm: Denies: urticaria PFSH ED PFSH: Medical History (Updated 03/28/22 @ 22:13 by Og Buck MD) Migraines Traumatic rupture of left biceps tendon Underweight Surgical History History of dilatation and curettage Family History Mother Seizure disorder Social History Smoking and tobacco status: former smoker Quit status (tobacco): not considering quitting Second hand smoke exposure: Yes Smoking risk assessment/counseling performed?: Yes Alcohol intake: unknown Desire information about alcohol rehabilitation?: No Counseling given: No Adopted: No Caregiver/support person: Yes Lives independently: No Household members: significant other and caregiver Marital status: Single Number of children: 0 Number of grandchildren: 0 service: No Current occupational status: unemployed Current occupational exposures/hazards: No Pets and animals: Yes (2 cats) Pets & animals: cat(s) History of recent travel: No Sexually active: Yes Current gender identity: Female Leslie/Buddhism: Confucianism Special leslie needs: No Agree to transfusion: Yes Financial difficulty paying for basics: Somewhat Hard Female Reproductive History: Date of last menstrual period: 03/17/19 Physical Exam Const: COMMON NORMALS: no acute distress, patient oriented x3 and healthy appearing HENMT: COMMON NORMALS: normocephalic and atraumatic HEAD & SCALP: normocephalic and atraumatic Eye: COMMON NORMALS: Equal, round and reactive pupils present and EOMs intact bilaterally PUPIL: Yes Equal, round and reactive pupils present Neck/C-Spine: COMMON NORMALS: full ROM and supple Chest: COMMONS NORMALS: normal inspection of the chest and normal palpation of entire chest wall Resp: COMMON NORMALS: normal respiratory effort, No retractions, No use of accessory muscles and clear to auscultation bilaterally AUSCULTATION: clear to auscultation bilaterally Cardio: COMMON NORMALS: regular rate, regular rhythm and No murmurs present (Cardio) RATE: regular rate RHYTHM: regular rhythm GI: COMMON NORMALS: Normal to inspection, nondistended, normoactive bowel sounds present, Soft to palpation, non-tender and no masses PALPATION: Yes Soft to palpation Extremity: COMMON NORMALS: normal to inspection and full ROM Neuro: COMMON NORMALS: patient oriented x3, moves all extremities and no focal motor deficits Psych: COMMON NORMALS: mental status grossly normal, Normal thought process present and cooperative THOUGHT PROCESS: Normal thought process present Skin: COMMON NORMALS: no rashes or lesions noted and no wounds GENERAL SKIN EXAM: no rashes or lesions noted Course Vital Signs: Vital signs: Vital Signs Temperature 98.9 F 03/28/22 19:43 Pulse Rate 92 03/28/22 19:43 Respiratory Rate 16 03/28/22 19:43 Blood Pressure 134/85 03/28/22 19:43 Pulse Oximetry 98 03/28/22 19:43 [facility] - General Adult Medical Decision Making Patient presents with vaginal bleeding she is well-appearing here blood pressure is normal her hemoglobin is normal she is not ultrasound showed no acute findings besides a thickened endometrial stripe get her follow-up with SENIOR [facility]TOGENETICS LABORATORY DIRECTOR in 2 to 4 days and return if worsening she understands agrees to plan. Lab Data : 03/28/22 21:25 03/28/22 21:25 Radiology Impressions Pelvis Ultrasound 03/28/22 18:56 IMPRESSION: Thickened endometrium, otherwise unremarkable transabdominal ultrasound the pelvis. Laboratory Results WBC 8.0 10^3/uL (4.0-10.0) 03/28/22 21:25 RBC 4.55 10^6/uL (4.1-5.3) 03/28/22 21: Hgb 14.0 g/dL (11.5-15.3) 03/28/22 21:25 Hct 42.6 % (37.0-47.0) 03/28/22 21: MCV 93.6 fl (81-99) 03/28/22 21: MCH 30.8 pg (28.0-34.0) 03/28/22: MCHC 32.9 g/dL (30.0-36.0) 03/28/22: RDW 14.1 % (12.1-15.1) 03/28/22: Plt Count 205 10^3/cmm (130-400) 03/28/22 21: MPV 10.2 fL (7.4-10.4) 03/28/22 21: Neut % (Auto) 66.4 % 03/28/22 21: Lymph % (Auto) 24.7 % 03/28/22 21: [place] % (Auto) 6.3 % 03/28/22: Eos % (Auto) 2.1 % 03/28/22: Baso % (Auto) 0.4 % 03/28/22: Neut # (Auto) 5.30 10^3/uL (1.8-7.7) 03/28/22: Lymph # (Auto) 2.0 10^3/uL (0.8-4.8) 03/28/22: [place] # (Auto) 0.5 10^3/uL (0.2-0.9) 03/28/22 21: Eos # (Auto) 0.2 10^3/uL (0.0-0.8) 03/28/22: Baso # (Auto) 0.0 10^3/uL (0.0-0.1) 05/12/22 21:25 Nucleated RBC % (auto) 0 % 03/28/22 21:25 Nucleated RBCs # 0.0 /100WBC 03/28/22 21:25 Sodium 142 mmol/L (136-145) 03/28/22 21:25 Potassium 3.5 mmol/L (3.5-5.1) 03/28/22 21:25 Chloride 107 mmol/L (98-107) 03/28/22 21:25 Carbon Dioxide 24 mmol/L (22-29) 03/28/22 21:25 Anion Gap 14.5 (5-19) 03/28/22 21:25 BUN 11 mg/dL (6-20) 03/28/22 21:25 Creatinine 0.5 mg/dL (0.5-0.9) 03/28/22 21:25 GFR Calculation 152.9 mL/min (90-130) H 03/28/22 21:25 Glucose 89 mg/dL (65-115) 03/28/22 21:25 Calculated Osmolality 293 mOsm/kg (285-295) 03/28/22 21:25 Calcium 9.6 mg/dL (8.5-10.5) 03/28/22 21:25 Total Bilirubin 0.4 mg/dL (0.15-1.2) 03/28/22 21:25 AST 20 U/L (0-32) 03/28/22 21:25 ALT 11 U/L (0-33) 03/28/22 21:25 Alkaline Phosphatase 74 IU/L (35-105) 03/28/22 21:25 Total Protein 7.9 g/dL (6.6-8.7) 03/28/22 21:25 Albumin 4.9 g/dL (3.5-5.2) 03/28/22 21:25 Globulin 3.0 g/dL (1.3-4.6) 03/28/22 21:25 Ser , Semi-Qnt 0.50 mIU/mL 03/28/22 21:25 Discharge Plan Discharge Patient Disposition: Home Clinical Impression: Vaginal bleeding Condition: Stable Prescriptions: No Action ondansetron 4 mg tablet,disintegrating 4 mg PO Q8H 0RF valproic acid 250 mg capsule 250 mg PO BID 0RF cyclobenzaprine 10 mg tablet 10 mg PO BID 0RF 28-800 mg-mcg Tablet 1 tab PO DAILY 0RF Discharge Orders: Discharge ED (Routine); Ordered 03/28/22 Ordered By: Og Buck Referrals: Rubi Piper MD [Physician] - 1-3 days Discharge Diet: Advance as tolerated Discharge Activity: Resume usual activity Patient Instructions: Abnormal (Dysfunctional) Uterine Bleeding (ED) Coding Level of Care Code ED Subeditor for Chg Fwd Exam Comprehensive
[2022-03-28 21:42] LABS: Basophils % 0.4 %; Eosinophils # 0.2 10^3/uL (0.0-0.8); Eosinophils % 2.1 %; Hematocrit 42.6 % (37.0-47.0); Lymphocytes % 24.7 %; Mean Corpuscular HGB Conc 32.9 g/dL (30.0-36.0); Mean Corpuscular Hemoglobin 30.8 pg (28.0-34.0); Mean Corpuscular Volume 93.6 fl (81-99); Mean Platelet Volume 10.2 fL (7.4-10.4); Monocytes # 0.5 10^3/uL (0.2-0.9); Monocytes % 6.3 %; Neutrophils % 66.4 %; Nucleated Red Blood Cells % 0 %; Platelet Count 205 10^3/cmm (130-400); Red Blood Count 4.55 10^6/uL (4.1-5.3); Red Cell Distribution Width 14.1 % (12.1-15.1)
[2022-03-28 22:05] LABS: Alanine Aminotransferase 11 U/L (0-33); Albumin Level 4.9 g/dL (3.5-5.2); Alkaline Phosphatase 74 IU/L (35-105); Anion Gap 14.5 (5-19); Aspartate Amino Transferase 20 U/L (0-32); Blood Urea Nitrogen 11 mg/dL (6-20); Calcium 9.6 mg/dL (8.5-10.5); Carbon Dioxide 24 mmol/L (22-29); Chloride 107 mmol/L (98-107); Glomerular Filtration Rate 152.9 mL/min (90-130); Glucose 89 mg/dL (65-115); Osmolality Calculated 293 mOsm/kg (285-295); Potassium 3.5 mmol/L (3.5-5.1); Sodium 142 mmol/L (136-145); Total Bilirubin 0.4 mg/dL (0.15-1.2); Total Protein 7.9 g/dL (6.6-8.7)
[2022-03-28 22:52] VITALS: BP 111/68; PULSE 78; RESP 18; O2SAT 99
--- NOTE | 2022-03-29 10:31 | DCPLANNER ---
Addendum entered by Angie Goff 06/07/22 17:02: manager ui was told by [facility] that voicemail was left for patient to call clinic to schedule appointment. Original Note: manager ui had message to schedule a follow up appointment for patient with [facility]. manager ui sent patients information to the front office staff at [facility]. Patients information will be printed and reviewed. Clinic will call patient with appointment information.
== END 2022-03-28 22:53 | disposition home or self-care (01) ==
PROVIDERS: Emergency Provider Emergency Medicine
DX: N93.9 Abnormal uterine and vaginal bleeding, unspecified (principal); Z87.59 Personal history of other complications of pregnancy, childbirth and the puerperium
CPT/HCPCS: 76856; 80053; 84702; 85025; 99283

== ENCOUNTER → 2022-12-30 09:46 | Outpatient (BNVA) | payer MEDICAID, SELFPAY | PROVIDERS: Visit Provider Nurse Practitioner Women's Health | DX: O09.90 Supervision of high risk pregnancy, unspecified, unspecified trimester (principal); Z3A.00 Weeks of gestation of pregnancy not specified | CPT/HCPCS: 81000; 87081 ==

== ENCOUNTER 2023-01-10 14:53 | Outpatient (CLI) | payer MEDICAID, SELFPAY ==
[2023-01-10 14:53] VITALS: BMI 17.6
[2023-01-10 15:09] VITALS: RESP 17
== END 2023-01-10 15:34 | disposition home or self-care (01) ==
LOC: OPOB 15:01 → OBGYN 15:02
PROVIDERS: Absent Provider Obstetrics & Gynecology; Visit Provider Obstetrics & Gynecology
DX: O36.8190 Decreased fetal movements, unspecified trimester, not applicable or unspecified (principal); Z3A.00 Weeks of gestation of pregnancy not specified
CPT/HCPCS: 59025

== ENCOUNTER 2023-01-14 16:56 | Outpatient (CLI) | payer MEDICAID, SELFPAY ==
[2023-01-14 17:16] VITALS: BP 117/68; PULSE 81
[2023-01-14 17:23] VITALS: RESP 15; TEMP 36.4
--- NOTE | 2023-01-14 17:23 | USR_ITS ---
PROCEDURE INFORMATION: Exam: US Biophysical Profile Without Non-Stress Test Exam date and time: 01/14/2023 5:45 PM Age: 22 years old Clinical indication: Other: Decreased movement; ; Additional info: Iugr. Decreased movement. TECHNIQUE: Imaging protocol: US biophysical profile without non-stress testing. COMPARISON: US OB F/U with umb art [facility] 01/07/2023 1:15 PM FINDINGS: BIOPHYSICAL PROFILE: breathing movement (BPP): 2 out of 2. body movement (BPP): 2 out of 2. tone (BPP): 2 out of 2. Amniotic fluid (BPP): 2 out of 2. Cervix evaluation limited, appearing unremarkable. Cephalic presentation. Anterior placenta grade 3. heart rate of 150 beats per minute. Reported gestational age of 38 weeks 1 day. Largest vertical pocket of amniotic fluid is 3 cm. US/US OB BPP wo NST [id number] IMPRESSION: Biophysical profile score is 8 out of 8.
[2023-01-14 18:05] VITALS: BP 117/68; PULSE 81; RESP 15; TEMP 36.4
== END 2023-01-14 18:05 | disposition home or self-care (01) ==
LOC: OPOB 17:02 → OBGYN 17:09
PROVIDERS: Visit Provider Obstetrics & Gynecology
DX: O36.5990 Maternal care for other known or suspected poor fetal growth, unspecified trimester, not applicable or unspecified (principal); Z3A.00 Weeks of gestation of pregnancy not specified; O36.8190 Decreased fetal movements, unspecified trimester, not applicable or unspecified
CPT/HCPCS: 59025; 76819; 99211

== ENCOUNTER 2023-01-15 01:10 | Inpatient (IN) | payer MEDICAID, SELFPAY ==
[2023-01-15] VITALS (68 sets, daily range): BP systolic 95–151; BP diastolic 53–94; PULSE 61–110; RESP 15–17; TEMP 36.2–36.8; O2SAT 96–99; BMI 17.9
[2023-01-15 01:57] LABS: Basophils % 0.2 %; Eosinophils # 0.2 10^3/uL (0.0-0.8); Eosinophils % 1.5 %; Hematocrit 32.2 % (37.0-47.0); Hemoglobin 10.4 g/dL (11.5-15.3); Lymphocytes # 1.9 10^3/uL (0.8-4.8); Lymphocytes % 18.1 %; Mean Corpuscular HGB Conc 32.3 g/dL (30.0-36.0); Mean Corpuscular Hemoglobin 29.4 pg (28.0-34.0); Mean Platelet Volume 11.3 fL (7.4-10.4); Monocytes # 0.7 10^3/uL (0.2-0.9); Monocytes % 6.1 %; Neutrophils % 73.4 %; Nucleated Red Blood Cells % 0 %; Platelet Count 214 10^3/cmm (130-400); Red Blood Count 3.54 10^6/uL (4.1-5.3); Red Cell Distribution Width 13.1 % (12.1-15.1); White Blood Count 10.6 10^3/uL (4.0-10.0)
[2023-01-15] MEDS: miSOPROStol 100 mcg tablet 25 MCG VAGINAL ×2 (02:07→06:24)
[2023-01-15 05:10] LABS: Amphetamines Screen Urine Negative (Negative); Barbiturates Screen Urine Negative (Negative); Benzodiazepines Screen Urine Negative (Negative); Cocaine Screen Urine Negative (Negative); Opiate Screen Urine Negative (Negative); PCP Screen Urine Negative (Negative); THC Screen Urine Negative (Negative)
[2023-01-15] MEDS: lactated ringers 1,000 ML 500 ML IV (06:09)
--- NOTE | 2023-01-15 07:24 | PM.OPHPUD ---
Labor & Delivery H&P Update Date of Procedure: January 15, 2023 Date H&P Performed: 01/10/23 H&P update information: I have reviewed H&P completed within last 30 days, I have examined patient prior to procedure and No changes to prior documentation Changes to previous documentation: The patient is being admitted for induction of labor for IUGR IUP@ [id number] Admission Diagnosis: Preop diagnosis: post hemorrhage delayed
[2023-01-15] MEDS: oxytocin 30 UNIT/500 ML BAG IV (12:05)
[2023-01-15] MEDS: fentaNYL 50 mcg/mL INJ 2mL IVP (13:44)
[2023-01-15] MEDS: lactated ringers 1,000 ML 999 ML IV (13:53)
--- NOTE | 2023-01-15 14:47 | P.ANESASSM_ITS ---
Pre-Anesthetic Assessment Height/Weight: Height 1.78 m Weight 56.699 kg Temp Pulse Resp BP Pulse Ox O2 Del Method 97.2 F L 98 17 151/92 99 01/15/23 10:06 01/15/23 14:43 01/15/23 13:44 01/15/23 14:43 01/15/23 14:43 01/15/23 02:30 Preop Diagnosis: labor Pain epidural Familial anesthetic complications: none Was Beta Lucho taken within 24 hours: N/A Was Clonidine taken within 24 hours: N/A Social Tobacco and No alcohol Exam alert, oriented x 3, clear to auscultation bilaterally and regular rate & rhythm Airway Submandibular: within normal limits Cervical ROM: within normal limits Mallampati: Class II Comments: Comments: very poor Pulmonary None reported CV/HEM None reported None reported Hepatic None reported GI None reported Metabolic None reported Musc/skel None reported Neuropsych None reported Anesthetic Plan ASA status: 2 Anesthesia: Regional (specify below) Risk of > 500 ml blood loss (7ml/kg in children): No Medications/Allergies Home Medications Medication Instructions Recorded Confirmed Last Taken Type PNV 153-FA 400 mcg-om3 35 mg-dha 1 tab PO DAILY 12/30/22 01/15/23 01/14/23 10:00 History 25 mg-epa 5 mg-fish oil chew tablet ( Gummies) Allergies Allergy/AdvReac Type Severity Reaction Status Date / Time cephalexin Allergy Intermediate light Verified 01/15/23 03:13 headed pineapple Allergy ADR-Itching Verified 01/15/23 03:13 Current Medications Generic Name Dose Route Start Last Admin Trade Name Mellisa PRN Reason Stop Dose Admin Fentanyl 25 - 100 mcg 01/15/23 01:24 01/15/23 13:44 Fentanyl 50 Mcg/Ml Inj 2ml IVP 25 mcg Q1H PRN Administration SEVERE PAIN Lactated Ringer's 1,000 mls @ 999 mls/hr 01/15/23 01:24 01/15/23 12:09 Lactated Ringers IV 125 mls/hr .Q1H1M PRN Infusion Per L&D Rescitation Protocol Oxytocin 30 unit in 500 mls @ 1 mls/hr 01/15/23 10:30 01/15/23 13:45 Pitocin IV 0 milliunit/min .Q24H BELA 0 mls/hr Titration Protocol 1 MILLIUNIT/MIN Lactated Ringer's 1,000 mls @ 999 mls/hr 01/15/23 13:43 01/15/23 13:53 Lactated Ringers IV 999 mls/hr .Q1H1M PRN Administration See label comments [facility] Anesthesia Medical History (Updated 01/15/23 @ 07:26 by Rubi Piper MD) History of spontaneous Migraines Normal vaginal delivery of second Periurethral abrasion, delivered, current hospitalization Second-degree perineal laceration, Traumatic rupture of left biceps tendon Underweight Surgical History (Updated 01/12/23 @ 21:16 by Rubi Piper MD) History of dilatation and curettage History of surgery dilation and curettage Family History Grandmother Diabetes maternal Hypertension maternal paternal Brother Diabetes Grandfather Hypertension maternal paternal Stroke maternal Denies family history of Colon cancer Ovarian cancer Heart disease Hypercholesteremia Breast cancer Uterine cancer Thyroid disease Female Reproductive History : 5 Data Anesthesia 01/15/23 01:35 Short CBC 01/15/23 Range/Units 01:35 WBC 10.6 H (4.0-10.0) 10^3/uL Hgb 10.4 L (11.5-15.3) g/dL Hct 32.2 L (37.0-47.0) % MCV 91.0 (81-99) fl Plt Count 214 (130-400) 10^3/cmm Neut % (Auto) 73.4 % Neut # (Auto) 7.80 H (1.8-7.7) 10^3/uL Cardiac Studies: No Data to Display Anesthesia Procedures Epidural Time Out Performed: Yes Consents Signed: Procedure Consent Consent: from patient, risks and benefits reviewed and patient agrees to proceed Lumbar Level: L3-L4 Epidural position: sitting Epidural procedure: sterile prep of area, 1% lidocaine to numb the area, negative for paresthesia passed, neg for paresthesia, test dose given, 1.5% xylocaine 1:200k epi, 0.2% Ropivacaine bolus ml, placed PCEA, no systemic response, sterile dressing applied, L.U.D. no apparent complications and 0.2% Ropiavacaine @ mls/hr (13)
[2023-01-15] MEDS: ondansetron 2 mg/ML SDV 2 mL 4 MG IVP (14:56)
[2023-01-15] MEDS: dextrose 5%-lactated ringers 1,000 ML 125 ML IV ×2 (14:56→19:35)
--- NOTE | 2023-01-15 19:24 | P.PCNOB_ITS ---
Delivery Note: Date of delivery: January 15, 2023 Pre-delivery diagnoses: iup@38w2d, IUGR Post-delivery diagnoses: same-delivered Procedure: Estimated blood loss (mL): 20 Findings: term female in the SINA presentation with a shoulder cord. Pre-Delivery Course: The patient was admitted for induction at term. She received three doses of cytotec overnight. She ate breakfast and pitocin was started. She received an epidural for pain management. The pitocin was stopped, as she was laboring naturally. She had complete cervical dilation and began pushing. Delivery: The patient had complete cervical dilation and began to push. The head delivered in the SINA position over an intact perineum under epidural anesthesia. The nose and mouth were bulb suctioned. The shoulders and body delivered atraumatically. The baby was placed onto the mother's abdomen. The cord was clamped and cut. The placenta delivered spontaneously. It was inspected and found to be intact. There was a large clot present at delivery and there appeared to be an abruption. Inspection of the perineum revealed no lacerations and no repair was required. Estimated blood loss 20 mL. Apgars on baby were 7 at 1 minute and 9 at 5 minutes. Weight of baby is pending. Mother and baby were stable post delivery. History History History 5 Term 1 0 Miscarriages/Ectopic 3 Living Children 1 Past Pregnancies Del. Date GA/Weeks Outcome Route Wt Inf Gender Labor Lgth Comp. Anesth esia Location Unknown 12 spontaneous Delivery Date: Last Updated by: Jeannette Ram MD 2014, patient needed a dilatation and curettage Coding Level of Care Code Acute Code for Chg Fwd
[2023-01-16] VITALS (11 sets, daily range): BP systolic 107–127; BP diastolic 55–73; PULSE 64–91; RESP 16–17; TEMP 36.2–37
[2023-01-16] MEDS: acetaminophen 325 mg Tablet 650 MG PO (03:41)
[2023-01-16] MEDS: oxytocin 30 UNIT/500 ML BAG 60 UNIT IV (05:02)
[2023-01-16] MEDS: HYDROcodone-acetaminophen 5-325 mg Tablet PO (06:05)
[2023-01-16] MEDS: benzocaine-menthol 78 gm Canister 1 SPRAY TOPICAL (06:06)
[2023-01-16 07:52] LABS: Hematocrit 29.9 % (37.0-47.0); Hemoglobin 9.7 g/dL (11.5-15.3); Mean Corpuscular HGB Conc 32.4 g/dL (30.0-36.0); Mean Corpuscular Hemoglobin 29.8 pg (28.0-34.0); Mean Platelet Volume 10.9 fL (7.4-10.4); Platelet Count 168 10^3/cmm (130-400); Red Blood Count 3.25 10^6/uL (4.1-5.3); Red Cell Distribution Width 13.1 % (12.1-15.1); White Blood Count 15.5 10^3/uL (4.0-10.0)
[2023-01-16] MEDS: docusate sodium 100 mg Capsule PO (09:52)
[2023-01-16] MEDS: prenatal vitamin Capsule 1 CAP PO (09:53)
[2023-01-16] MEDS: ibuprofen 800 mg tablet PO ×2 (09:53→15:46)
--- NOTE | 2023-01-16 15:34 | ANE.PACU2 ---
Inpatient post-anesthesia follow up: Airway intact: Yes Vital signs: Temperature 97.2 F Pulse Rate 64 Respiratory Rate 17 Blood Pressure 127/57 Pulse Oximetry 96 Oxygen Delivery Me thod Room Air Oxygen Flow Rate Fraction of Inspir ed Oxygen Hydration adequate: Yes Nausea and vomiting: No Pain level: 2 Mental status: Baseline
--- NOTE | 2023-01-16 16:04 | P.PN_ITS ---
Vitals/I&O/Wt Last Vital Signs Temp 98.1 F 01/16/23 15:47 Pulse 75 01/16/23 15:48 Resp 17 01/16/23 01:24 BP 119/56 01/16/23 15:48 Pulse Ox 96 01/15/23 15:23 O2 Del Method 01/15/23 02:30 01/16/23 01/16/23 01/16/23 06:59 14:59 22:59 Intake Total 1550 / 3768.500 Output Total 1100 / 1100 Balance 450 / 2668.500 Weight last 48 hrs Weight 125 lb Physical Exam Narrative: The patient is doing well. She has no concerns. Baby is doing well, but peds may want to keep baby for observation due to IUGR Const: COMMON NORMALS: no acute distress, average body habitus, patient oriented x3, no limitations, healthy appearing, alert and well nourished GENERAL APPEARANCE: cooperative, comfortable, well kempt and well developed ORIENTATION/CONSCIOUSNESS: Yes awake, Yes oriented to person, Yes oriented to place and Yes oriented to time Resp: COMMON NORMALS: clear to auscultation bilaterally EFFORT & INS PECTION: Yes able to speak in complete sentences AUSCULTATION: clear to auscultation bilaterally GI: COMMON NORMALS: Soft to palpation and non-tender PALPATION: Yes Soft to palpation Extremity: COMMON NORMALS: no calf tenderness Neuro: COMMON NORMALS: patient oriented x3 SENSORIUM/ORIENTATION: Yes alert, Yes oriented to person, Yes oriented to place and Yes oriented to time Psych: COMMON NORMALS: mental status grossly normal, Normal thought process present, cooperative, normal affect and speech normal APPEARANCE: Yes well kempt SPEECH: Yes normal speech THOUGHT PROCESS: Normal thought process present Urinary Catheter Management: Mast Latex: Cath Placed During This Visit: yes, but has since been removed by the nurse Reason for Continuing Indwelling Catheter: Required Immobilization for Trauma or Surgery or Anesthesia Urinary Catheter Date of Insertion: 01/15/23 Urinary Catheter Time of Insertion: 15:30 Date Urinary Catheter Removed: 01/15/23 Time Urinary Catheter Discontinued: 18:30 Data 01/16/23 07:43 Attestations Medical Necessity Statement*: The patient had a vaginal delivery and baby may have to stay two nights. Mom desires to stay with baby Coding Level of Care Code Acute Code for Chg Fwd
--- NOTE | 2023-01-17 09:17 | P.DS_ITS ---
Discharge Providers Date of Admission: 01/15/23 01:10 Date of Discharge: January 16, 2023 Attending Provider at Admission: Rubi Piper MD Attending Provider at Discharge: Rubi Piper MD Reason for Visit Reason for Visit: INDUCTION OF LABOR Hospital Course Hospital Course The patient was admitted for induction of labor at term for IUGR. She had spontaneous delivery of a female . She did well and on PPD#1, she requested discharge. Physical Exam Urinary Catheter Management: Mast Latex: Cath Placed During This Visit: yes, but has since been removed by the nurse Reason for Continuing Indwelling Catheter: Required Immobilization for Trauma or Surgery or Anesthesia Urinary Catheter Date of Insertion: 01/15/23 Urinary Catheter Time of Insertion: 15:30 Date Urinary Catheter Removed: 01/15/23 Time Urinary Catheter Discontinued: 18:30 Discharge Data Studies Completed and Pending Laboratory Results WBC 15.5 10^3/uL (4.0-10.0) H 01/16/23 07:43 RBC 3.25 10^6/uL (4.1-5.3) L 01/16/23 07:43 Hgb 9.7 g/dL (11.5-15.3) L 01/16/23 07:43 Hct 29.9 % (37.0-47.0) L 01/16/23 07:43 MCV 92.0 fl (81-99) 01/16/23 07:43 MCH 29.8 pg (28.0-34.0) 01/16/23 07:43 MCHC 32.4 g/dL (30.0-36.0) 01/16/23 07:43 RDW 13.1 % (12.1-15.1) 01/16/23 07:43 Plt Count 168 10^3/cmm (130-400) 01/16/23 07:43 MPV 10.9 fL (7.4-10.4) H 01/16/23 07:43 Neut % (Auto) 73.4 % 01/15/23 01:35 Lymph % (Auto) 18.1 % 01/15/23 01:35 Alger % (Auto) 6.1 % 01/15/23 01:35 Eos % (Auto) 1.5 % 01/15/23 01:35 Baso % (Auto) 0.2 % 01/15/23 01:35 Neut # (Auto) 7.80 10^3/uL (1.8-7.7) H 01/15/23 01:35 Lymph # (Auto) 1.9 10^3/uL (0.8-4.8) 01/15/23 01:35 Alger # (Auto) 0.7 10^3/uL (0.2-0.9) 01/15/23 01:35 Eos # (Auto) 0.2 10^3/uL (0.0-0.8) 01/15/23 01:35 Baso # (Auto) 0.0 10^3/uL (0.0-0.1) 01/15/23 01:35 Nucleated RBC % (auto) 0 % 01/15/23 01:35 Nucleated RBCs # 0.0 /100WBC 01/15/23 01:35 Urine Opiates Screen Negative ng/mL (Negative) 01/15/23 01:20 Ur Barbiturates Screen Negative ng/mL (Negative) 01/15/23 01:20 Ur Phencyclidine Scrn Negative ng/mL (Negative) 01/15/23 01:20 Ur Amphetamines Screen Negative ng/mL (Negative) 01/15/23 01:20 U Benzodiazepines Scrn Negative ng/mL (Negative) 01/15/23 01:20 Urine Cocaine Screen Negative ng/mL (Negative) 01/15/23 01:20 U Marijuana (THC) Screen Negative ng/mL (Negative) 01/15/23 01:20 Vitals Last Vital Signs Temp 97.2 F L 01/16/23 20:09 Pulse 91 01/16/23 20:09 Resp 16 01/16/23 20:00 BP 116/69 01/16/23 20:09 Pulse Ox 96 01/15/23 15:23 O2 Del Method 01/15/23 02:30 Discharge Plan Discharge Patient Disposition: Home Prescriptions: No Action No Known Home Medications Discharge Orders: Discharge Order (Routine); Ordered 01/16/23 Ordered By: Rubi Piper Referrals: Rubi Piper MD [Physician] - 01/29/23 10:15 am ( Your 2 week follow up is on January 29 at 10:15am with Dr Piper Your 6 week follow up is on February 19 at 10:45am with Dr Piper ) Patient Instructions: Depression (DC), Bleeding (DC), Preeclampsia and Eclampsia After Delivery (GEN), OB Discharge Report, OB Food/Drug Interaction Guide, OB Care at Home, Opioid Safety, OB Home Care, OB Vaginal Deliveries - [facility] Activity Restrictions/Additional Instructions: Call [facility] 01/17/2023 to schedule your 2 week and 6 week check up. Discharge Attestations Time Spent in Discharge Care*: less than 30 min Status at Discharge: Cognitive status at discharge: cognitively intact , Behavioral status at discharge: cooperative , Quality Metrics Clinical Quality Measures [ No reported AMI, CVA or VTE this stay] Coding Level of Care Code Acute Code for Chg Fwd
== END 2023-01-16 20:12 | disposition home or self-care (01) | DRG 807 ==
PROVIDERS: Admitting Provider Obstetrics & Gynecology; Visit Provider Obstetrics & Gynecology
DX: O45.93 Premature separation of placenta, unspecified, third trimester (principal); Z37.0 Single live birth; O99.334 Smoking (tobacco) complicating childbirth; F17.210 Nicotine dependence, cigarettes, uncomplicated; O36.5930 Maternal care for other known or suspected poor fetal growth, third trimester, not applicable or unspecified; O69.89X0 Labor and delivery complicated by other cord complications, not applicable or unspecified; Z3A.38 38 weeks gestation of pregnancy
CPT/HCPCS: 36415; 51702; 59025; 80306; 85025; 85027; 96374; 98960; J2405; J2590; J2795; J3010; J7120; J7121

== ENCOUNTER 2024-09-27 13:17 | Oncology outpatient (recurring) (ONCR) | payer MEDICAID, SELFPAY ==
--- OUTSIDE RECORDS SUMMARY | 2024-09-27 13:19 | XMS_ITS | Continuity of Care Document ---
Author Name Unknown Organization [facility] Address [address] [id number] [address] Phone Care Team Providers Care Relish Blender Name Role Phone Moy Simpson DDS Unavailable Unavailable Unavailable Unavailable Unavailable Allergies, Adverse Reactions, Alerts Substance Reaction Status Criticality pineapple Active No Information Medications Medication Instructions Dosage Effective Dates (start - stop) Status Comments Augmentin 500 mg-125 mg tablet take 1 tablet by oral route every 12 hours 1.00 tablet - Active amoxicillin 500 mg capsule take 1 capsule by oral route 3 times every day for 10 days 500 MG - No Longer Active Procedures Procedure Date No Work Today/No Charge EDR Approval Note Extraction, Erupted Tooth Or Exposed Tosha t (Elevati Extraction, Erupted Tooth Or Exposed Tosha t (Elevati Extraction, Erupted Tooth Or Exposed Tosha t (Elevati EDR Approval Note Panoramic Film Bitewings ??? Four Films Comprehensive Oral Evaluation ??? New Or Established Intraoral ??? Periapical First Film Intraoral ??? Periapical Each Additional Film Intraoral ??? Periapical Each Additional Film Intraoral ??? Periapical Each Additional Film EDR Approval Note Advance Directives Directive Yes / No Effective Date File Name No Information Encounters Encounter Description Practice Location Reason(s) For Visit Diagnoses Date Provider Providers Copied on Encounter [facility], [id number], [id number], [place] tel:[phone] [facility] Encounter for dental exam and cleaning w/o abnormal findings Calvin Winter. [address] [place], [address], [place]. tel:[phone] Referring Provider: Moy Simpson, [address] [place], [address]. tel:[phone] [facility], [id number], [id number], [place] tel:[phone] [facility] Encounter for dental exam and cleaning w/o abnormal findings Calvin Winter. [address] [place], [address], [place]. tel:[phone] Referring Provider: Moy Simpson, [address] [place], [address]. tel:[phone] [facility], [id number], [id number], [place] tel:[phone] [facility] Encounter for dental exam and cleaning w/o abnormal findings David Davis. [address] [place], [address], [place]. tel:[phone] Referring Provider: Susan Hernandez, [address] [place], [address]. tel:[phone] Family History Family Member Type Diagnosis Age At Onset No Information Payers Payer name Insurance type Covered green party ID Josef reyes(s) D [employer] CI [id number] Social History Type Description Quantity Date Captured Comments Alcohol Use Details Unknown Caffeine Use Details Unknown Tobacco Use Status Smoking Status No Information Sex Female Sexual Orientation Heterosexual Gender Identity Female Vital Signs Date / Time: Height Weight BMI Pulse Rate Blood Pressure Temperature Respiratory Rate Body Surface Area Head Circumference Head Circ. Percentile Wt./Aj. Percentile BMI percentile Pulse Ox Inhaled Ox 12:22 PM 122/85 mm[Hg] Chief Complaint And Reason For Visit No Information Reason For Referral Reason For Referral No Information Plan Of Treatment Date Type Action Status Goal Tobacco cessation counseling completed Goal Tobacco cessation counseling completed History Of Present Illness Encounter Date Complaint History Of Prese nt Illness No Information Functional Status Date Functional Assessmen t No Information Instructions Date Instruction Additional Infor tyra Lifestyle education Related to D ental Examination Lifestyle education Related to D ental Examination Assessments Type Assessment Date No Information Patient Care Teams Name Effective Dates (start - stop) Status Members No Information
[2024-09-27 13:42] LABS: Basophils % 0.2 %; Eosinophils # 0.2 10^3/uL (0.0-0.8); Eosinophils % 1.4 %; Hematocrit 35.5 % (36-47); Lymphocytes # 1.9 10^3/uL (0.8-4.8); Lymphocytes % 17.6 %; Mean Corpuscular HGB Conc 32.4 g/dL (30-55); Mean Corpuscular Hemoglobin 30.6 pg (27-33); Mean Corpuscular Volume 94.4 fl (85-98); Mean Platelet Volume 10.5 fL (7.4-10.4); Monocytes # 0.7 10^3/uL (0.2-0.9); Monocytes % 6.5 %; Neutrophils # 8.13 10^3/uL (1.8-7.7); Neutrophils % 73.5 %; Nucleated Red Blood Cells % 0 %; Platelet Count 256 10^3/cmm (157-399); Red Blood Count 3.76 10^6/uL (3.85-5.65); Red Cell Distribution Width 14.2 % (12.1-15.1); White Blood Count 11.05 10^3/uL (3.29-11.43)
[2024-09-27 13:43] LABS: Reticulocyte % 1.9 % (0.5-2.0)
[2024-09-27 14:22] LABS: Alanine Aminotransferase 9 U/L (0-33); Albumin Level 3.2 g/dL (3.5-5.2); Alkaline Phosphatase 201 U/L (35-105); Aspartate Amino Transferase 20 U/L (0-32); Blood Urea Nitrogen 6 mg/dL (6-20); Calcium 8.4 mg/dL (8.5-10.5); Carbon Dioxide 23 mmol/L (22-29); Chloride 108 mmol/L (98-107); Creatinine Clr Calc Pharmacy 165.9401; Ferritin 8 ng/mL (15-150); Globulin 2.3 g/dL (1.3-4.6); Glomerular Filtration Rate 194.5 mL/min (90-130); Glucose 82 mg/dL (65-115); Iron 28 ug/dL (37-145); Lactate Dehydrogenase 266 U/L (135-214); Osmolality Calculated 287 mOsm/kg (285-295); Percent Saturation 4.8 % (20-50); Sodium 140 mmol/L (136-145); Total Bilirubin 0.2 mg/dL (0.15-1.2); Total Iron Binding Capacity 572 mcg/dl; Total Protein 5.5 g/dL (6.6-8.7); Unsaturated Iron Binding 544 ug/dL (112-347); Vitamin B12 329 pg/mL (232-1245)
[2024-09-27 14:45] LABS: Folate Level 8.7 ng/mL (4.8-37.3)
[2024-10-05 15:11] LABS: Soluble Transferrin Receptor 1.41 mg/L (0.76-1.76)
== END 2024-10-16 23:59 | disposition home or self-care (01) ==
PROVIDERS: PCP Nurse Practitioner Family; Visit Provider Internal Medicine Hematology & Oncology
DX: Z53.9 Procedure and treatment not carried out, unspecified reason (principal); D50.9 Iron deficiency anemia, unspecified
CPT/HCPCS: 80053; 82607; 82728; 82746; 83010; 83540; 83550; 83615; 84238; 85025; 85045

== ENCOUNTER → 2024-09-30 13:38 | Outpatient (BNVA) | payer MEDICAID, SELFPAY | PROVIDERS: PCP Nurse Practitioner Family; Visit Provider Obstetrics & Gynecology | DX: O09.899 Supervision of other high risk pregnancies, unspecified trimester (principal) | CPT/HCPCS: 84315; 87081 ==

== ENCOUNTER 2024-10-07 15:58 | Outpatient (CLI) | payer MEDICAID, SELFPAY ==
[2024-10-07 16:32] VITALS: BMI 20.5
[2024-10-07 16:33] VITALS: RESP 16; TEMP 36.8
[2024-10-07 18:08] VITALS: BP 119/67; PULSE 81; RESP 16
[2024-10-07 18:09] VITALS: BP 119/67; PULSE 81
== END 2024-10-07 18:31 | disposition home or self-care (01) ==
LOC: OPOB 15:59 → OBGYN 16:00
PROVIDERS: PCP Nurse Practitioner Family; Visit Provider Obstetrics & Gynecology
DX: O26.899 Other specified pregnancy related conditions, unspecified trimester (principal); Z3A.00 Weeks of gestation of pregnancy not specified; R10.9 Unspecified abdominal pain
CPT/HCPCS: 59025; 99211

== ENCOUNTER 2024-10-07 22:15 | Inpatient (IN) | payer MEDICAID, SELFPAY ==
[2024-10-07] VITALS (8 sets, daily range): BP systolic 113–179; BP diastolic 55–107; PULSE 64–123; TEMP 35.9
[2024-10-07 22:34] LABS: Basophils % 0.1 %; Eosinophils # 0.1 10^3/uL (0.0-0.8); Eosinophils % 0.6 %; Hematocrit 36.6 % (36-47); Lymphocytes # 2.4 10^3/uL (0.8-4.8); Lymphocytes % 12.6 %; Mean Corpuscular HGB Conc 32.8 g/dL (30-55); Mean Corpuscular Hemoglobin 30.8 pg (27-33); Mean Corpuscular Volume 93.8 fl (85-98); Mean Platelet Volume 10.7 fL (7.4-10.4); Monocytes # 0.9 10^3/uL (0.2-0.9); Neutrophils % 80.8 %; Nucleated Red Blood Cells % 0 %; Platelet Count 252 10^3/cmm (157-399); Red Cell Distribution Width 14.4 % (12.1-15.1); White Blood Count 18.58 10^3/uL (3.29-11.43)
[2024-10-07] MEDS: lactated ringers 1,000 ML 999 ML (22:40)
[2024-10-07] MEDS: oxytocin 30 UNIT/500 ML BAG 600 UNIT (23:20)
--- NOTE | 2024-10-07 23:30 | P.HP_ITS ---
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 Wright Primary Care Provider: Rivka Menchaca NP Chief Complaint: Contractions HPI [employer] DRAFTER History of Present Illness Cheyenne Ayers is a 23 year old female G8, P2 with BENITO 10/20/2024 admitted to labor and delivery in active labor. On presentation patient was 4 cm, and advanced quickly to 6 to 7 cm / 90%/-1 vertex presentation. Contractions on EFM every to 2 minutes with bloody show. Patient was on labor and delivery earlier today for observation and discharged home after no cervical change. Review of Systems 2 General: Reports: 10 or more systems reviewed and unremarkable except in HPI and below Medications/Allergies Home Medications Medication Instructions Recorded Confirmed Last Taken Type vits no.126-ferrous fum 1 tab PO DAILY 09/27/24 10/07/24 Unknown History 28 mg iron-folic acid 800 mcg tablet (Classic ) Allergies Allergy/AdvReac Type Severity Reaction Status Date / Time cephalexin Allergy Intermediate light Verified 10/07/24 14:57 headed pineapple Allergy ADR-Itching Verified 10/07/24 14:57 PFSH [employer] DRAFTER 2 PFSH: Medical History (Updated 10/07/24 @ 23:38 by Lela Clark DO) Insufficient care IUGR (intrauterine growth restriction) Tinea versicolor History of spontaneous Periurethral abrasion, delivered, current hospitalization Second-degree perineal laceration, Normal vaginal delivery of second Underweight Traumatic rupture of left biceps tendon Migraines Surgical History History of surgery dilation and curettage History of dilatation and curettage Family History Grandmother Diabetes maternal Hypertension maternal paternal Brother Diabetes Grandfather Hypertension maternal paternal Stroke maternal Denies family history of Colon cancer Ovarian cancer Heart disease Hypercholesteremia Breast cancer Uterine cancer Thyroid disease Social History (Updated 09/30/24 @ 13:05 by Roberta Thurman LPN) Smoking and tobacco/nicotine status: current every day tobacco/nicotine user cigarettes Packs smoked per day: 0.25 Alcohol intake: never Substance/Drug Use: never Do you think of yourself as: Straight/Heterosexual Current gender identity: Female Other Female Reproductive History: Menstrual flow: normal/abnormal: normal Sexual History: Are you sexually active?: Yes History History History 2 8 Term 2 0 Miscarriages/Ectopic 5 Living Children 2 Past Pregnancies Del. Date GA/Weeks Outcome Route Wt Inf Gender Labor Lgth Comp. Anesth esia Location Unknown 12 spontaneous Delivery Date: Last Updated by: Jeannette Ram MD 2014, patient needed a dilatation and curettage Care BENITO Calculator 2 Estimated Delivery Date Method Current WG Current Estimate 10/20/24 LMP (Certain) 38w 1d Other Estimates 10/20/24 Ultrasound #1 38w 1d 10/18/24 Ultrasound #2 38w 3d Expected Delivery Route/Plan Vaginal Vitals/I&O/Wt Last Vital Signs Temp 96.6 F L 10/07/24 21:57 Pulse 64 10/07/24 23:21 BP 127/56 10/07/24 23:21 Physical Exam 2 Narrative: 23-year-old female alert and orient x 3 no acute distress HENMT: COMMON NORMALS: normocephalic TEETH & GINGIVA: Yes edentulous and Yes poor dentition Resp: COMMON NORMALS: normal respiratory effort and clear to auscultation bilaterally Cardio: COMMON NORMALS: regular rate, regular rhythm and No murmurs present (Cardio) Back/Pelvis: OTHER: Abdomen?gravid, contractions moderate with palpation Extremity: COMMON NORMALS: normal to inspection, no clubbing, cyanosis or edema and no calf tenderness Neuro: COMMON NORMALS: patient oriented x3, CN's II-XII intact bilaterally and moves all extremities Data 10/07/24 22:23 Results Labs OB ([facility]): 2 Obstetrics US 01/07/23 Obstetrics US/Biophysical Profile Blood Type A Positive 10/07/24 Hct 36.6 % (36-47) 10/07/24 Hgb 12.00 g/dL (11.27-16.99) 10/07/24 Rho(D) Type Rh positive 10/07/24 Plt Count 252 10^3/cmm (157-399) 10/07/24 Urine Opiates Screen Negative ng/mL (Negative) 01/15/23 Ur Barbiturates Screen Negative ng/mL (Negative) 01/15/23 Ur Phencyclidine Scrn Negative ng/mL (Negative) 01/15/23 Ur Amphetamines Screen Negative ng/mL (Negative) 01/15/23 U Benzodiazepines Scrn Negative ng/mL (Negative) 01/15/23 Urine Cocaine Screen Negative ng/mL (Negative) 01/15/23 U Marijuana (THC) Screen Negative ng/mL (Negative) 01/15/23 A&P Assessment and plan (1) 38 weeks gestation of : Admitted to labor and delivery for management of labor (2) Active labor at term: Attestations 2 Medical Necessity Statement*: 23-year-old female G8, P2 in active labo r. Admitted for management of labor Coding Level of Care Code Acute Code for Chg Fwd Diagnoses 38 weeks gestation of Z3A.38 Active labor at term
--- NOTE | 2024-10-07 23:40 | P.PCNOB_ITS ---
Delivery Note: Date of delivery: October 07, 2024 Pre-delivery diagnoses: 38-week IUP in active labor G8, P2 Multiple miscarriages History of positive urine drug screen Post-delivery diagnoses: S/p viable male nuchal cord x 1 reduced, 8/9. Procedure: Delivering Physician: Lela Clark DO Estimated blood loss (mL): 300 Delivery: 23-year-old female G8, P2 at 38.1 weeks gestation with BENITO 10/20/2024 advanced quickly from 4 cm to 6 to 7 cm progressing even quicker to 9 then complete. Patient was unable to get an epidural due to precipitous labor. With several pushes after AROM (clear fluid) patient delivered a viable baby boy OA presentation, nuchal cord x 1 was easily reduced. The anterior followed by the posterior shoulders delivered with the remainder the baby's body to follow. A robust cry was noted, with a delay of clamping the cord the cord was clamped and cut and baby placed on the warmer for nursing assessment. Cord pH and cord blood were drawn and handed off. Pitocin IV solution was started in a bolus, the uterus was massaged and the placenta presented in a Owen presentation with trailing membranes. The uterus was massaged and firmed well. The vaginal vault and perineum were evaluated with no lacerations noted. The vaginal vault was expressed and the perineum cleansed. History History History 8 Term 3 0 Miscarriages/Ectopic 5 Living Children 2 Past Pregnancies Del. Date GA/Weeks Outcome Route Wt Inf Gender Labor Lgth Comp. Anesth esia Location Unknown 12 spontaneous Delivery Date: Last Updated by: Jeannette Ram MD 2014, patient needed a dilatation and curettage A&P Assessment and plan (1) 38 weeks gestation of : Admitted to labor and delivery for management of labor (2) Active labor at term: Plan Began care. Coding Level of Care Code Acute Code for Chg Fwd Diagnoses 38 weeks gestation of Z3A.38 Active labor at term
[2024-10-08] VITALS (12 sets, daily range): BP systolic 105–144; BP diastolic 54–68; PULSE 53–87; RESP 15–16; TEMP 36.8–37; O2SAT 97–99
[2024-10-08] MEDS: acetaminophen 325 mg Tablet 650 MG PO (05:33)
[2024-10-08 05:40] LABS: Amphetamines Screen Urine Negative (Negative); Barbiturates Screen Urine Negative (Negative); Benzodiazepines Screen Urine Negative (Negative); Cocaine Screen Urine Negative (Negative); Opiate Screen Urine Negative (Negative); PCP Screen Urine Negative (Negative); THC Screen Urine Positive (Negative)
[2024-10-08] MEDS: ibuprofen 800 mg tablet PO ×3 (09:01→20:52)
[2024-10-08] MEDS: docusate sodium 100 mg Capsule PO ×2 (09:01→20:52)
[2024-10-08] MEDS: PRENATAL VIT NO.130/IRON/FOLIC 1 EACH TABLET PO (09:01)
[2024-10-08 11:34] LABS: Hematocrit 35.8 % (36-47); Mean Corpuscular HGB Conc 33.2 g/dL (30-55); Mean Corpuscular Hemoglobin 31.2 pg (27-33); Mean Corpuscular Volume 93.7 fl (85-98); Mean Platelet Volume 10.6 fL (7.4-10.4); Platelet Count 223 10^3/cmm (157-399); Red Blood Count 3.82 10^6/uL (3.85-5.65); Red Cell Distribution Width 14.5 % (12.1-15.1); White Blood Count 16.49 10^3/uL (3.29-11.43)
--- NOTE | 2024-10-08 13:32 | PM.OBGYPN ---
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 Patient is breast-feeding well, ambulating and tolerating a regular diet. She has had 1 dose of ibuprofen since delivery with good management of pain. Her bleeding has been minimum. She denies headaches, visual changes chest pain or shortness of breath. expectations and discharge for tomorrow was reviewed. Labor: Station: 0 Amniotic Membrane Status: Ruptured Monitor Mode: External Contraction Pattern: Irregular Vitals/I&O/Wt Last Vital Signs Temp 98.2 F 10/08/24 06:17 Pulse 74 10/08/24 09:04 Resp 16 10/08/24 09:04 BP 105/65 10/08/24 09:04 Pulse Ox 97 10/08/24 09:04 O2 Del Method Room Air 10/08/24 09:04 10/07/24 10/08/24 10/08/24 22:59 06:59 14:59 Output Total 500 / 500 Balance -500 / -500 Weight last 48 hrs Weight 54.431 kg Weight 54.431 kg Weight 54.431 kg Physical Exam Back/Pelvis: OTHER: Abdomen?soft, fundus firm well below the umbilicus. Nontender. No CVA tenderness. Extremity: COMMON NORMALS: normal to inspection, no clubbing, cyanosis or edema and no calf tenderness Data 10/08/24 11:25 A&P Assessment and plan (1) Spontaneous vaginal delivery: Continue care Probable discharge in the a.m. (2) Active labor at term: (3) 38 weeks gestation of : Attestations Medical Necessity Statement*: 23-year-old G8, P3 admitted to labor and delivery for management of labor. Coding Level of Care Code Acute Code for Chg Fwd Diagnoses Spontaneous vaginal delivery O80 Active labor at term 38 weeks gestation of Z3A.38
[2024-10-09] MEDS: lanolin oint 7 gm 1 APPLIC TOPICAL (02:15)
[2024-10-09 04:06] VITALS: BP 117/63; PULSE 75; RESP 16; TEMP 36.8; O2SAT 98
--- NOTE | 2024-10-09 09:27 | PM.OBGYDC ---
Discharge Providers ACCREDITED LEGAL SECRETARY Date of Admission: 10/07/24 22:15 Date of Discharge: 10/09/24 Attending Provider at Admission: Lela Clark DO Attending Provider at Discharge: Lela Clark DO Primary Care Provider: Rivka Menchaca NP Diagnoses at Discharge Discharge Diagnosis (1) Spontaneous vaginal delivery: Details from hospital stay: 23-year-old G8, P3 delivered via of viable baby boy on 10/07/2024. Patient's stay has been uneventful. She is breast-feeding, ambulating and tolerating a regular diet. Patient denies excessive bleeding. She denies headaches, blurred vision, chest pain or shortness of breath. She has occasional abdominal cramping associated with breast-feeding. Discharge expectations have been reviewed to include no heavy lifting pushing or pulling no sex douching or tampons x 6 weeks. Patient is encouraged to continue her vitamins throughout the time that she continues to breast-feed. Patient is encouraged to follow-up at the clinic in 4 weeks for care and contraceptive review. Patient's exam?unremarkable Status: Acute (2) Active labor at term: Status: Acute (3) 38 weeks gestation of : Status: Acute Reason for Visit Reason for Visit: Contractions Hospital Course Hospital Course See above hospital stay details Information Peripartum Data: Delivery Method: Vaginal Laceration description: None Episiotomy description: None complications: none Physical Exam Back/Pelvis: OTHER: Abdomen?soft, fundus firm well below umbilicus. Extremity: COMMON NORMALS: normal to inspection, no clubbing, cyanosis or edema and no calf tenderness History History History 8 Term 3 0 Miscarriages/Ectopic 5 Living Children 2 Past Pregnancies Del. Date GA/Weeks Outcome Route Wt Inf Gender Labor Lgth Comp. Anesthesia Location Unknown 12 spontaneous Delivery Date: Last Updated by: Jeannette Ram MD 2014, patient needed a dilatation and curettage Discharge Data Studies Completed and Pending Laboratory Results WBC 16.49 10^3/uL (3.29-11.43) H 10/08/24 11:25 RBC 3.82 10^6/uL (3.85-5.65) L 10/08/24 11:25 Hgb 11.90 g/dL (11.27-16.99) 10/08/24 11:25 Hct 35.8 % (36-47) L 10/08/24 11:25 MCV 93.7 fl (85-98) 10/08/24 11:25 MCH 31.2 pg (27-33) 10/08/24 11:25 MCHC 33.2 g/dL (30-55) 10/08/24 11:25 RDW 14.5 % (12.1-15.1) 10/08/24 11:25 Plt Count 223 10^3/cmm (157-399) 10/08/24 11:25 MPV 10.6 fL (7.4-10.4) H 10/08/24 11:25 Neut % (Auto) 80.8 % 10/07/24 22: Lymph % (Auto) 12.6 % 10/07/24 22:23 [place] % (Auto) 5.0 % 10/07/24 22: Eos % (Auto) 0.6 % 10/07/24 22: Baso % (Auto) 0.1 % 10/07/24 22:23 Neut # (Auto) 15.00 10^3/uL (1.8-7.7) H 10/07/24 22:23 Lymph # (Auto) 2.4 10^3/uL (0.8-4.8) 10/07/24 22:23 [place] # (Auto) 0.9 10^3/uL (0.2-0.9) 10/07/24 22:23 Eos # (Auto) 0.1 10^3/uL (0.0-0.8) 10/07/24 22:23 Baso # (Auto) 0.0 10^3/uL (0.0-0.1) 10/07/24 22:23 Nucleated RBC % (auto) 0 % 10/07/24 22:23 Nucleated RBCs # 0.0 /100WBC 10/07/24 22:23 Urine Opiates Screen Negative ng/mL (Negative) 10/08/24 03:50 Ur Barbiturates Screen Negative ng/mL (Negative) 10/08/24 03:50 Ur Phencyclidine Scrn Negative ng/mL (Negative) 10/08/24 03:50 Ur Amphetamines Screen Negative ng/mL (Negative) 10/08/24 03:50 U Benzodiazepines Scrn Negative ng/mL (Negative) 10/08/24 03:50 Urine Cocaine Screen Negative ng/mL (Negative) 10/08/24 03:50 U Marijuana (THC) Screen Positive ng/mL (Negative) H 10/08/24 03:50 Blood Type A Positive 10/07/24 22:23 Rho(D) Type Rh positive 10/07/24 22:23 Antibody Screen Negative 10/07/24 22:23 Vitals Last Vital Signs Temp 98.2 F 10/09/24 04:06 Pulse 75 10/09/24 04:06 Resp 16 10/09/24 04:06 BP 117/63 10/09/24 04:06 Pulse Ox 98 10/09/24 04:06 O2 Del Method Room Air 10/09/24 04:06 Results Labs OB ([facility]): Obstetrics US 01/07/23 Obstetrics US/Biophysical Profile 01/14/23 Blood Type A Positive 10/07/24 Antibody Screen Negative 10/07/24 Hct 35.8 % (36-47) L 10/08/24 Hgb 11.90 g/dL (11.27-16.99) 10/08/24 Rho(D) Type Rh positive 10/07/24 Plt Count 223 10^3/cmm (157-399) 10/08/24 Urine Opiates Screen Negative ng/mL (Negative) 10/08/24 Ur Barbiturates Screen Negative ng/mL (Negative) 10/08/24 Ur Phencyclidine Scrn Negative ng/mL (Negative) 10/08/24 Ur Amphetamines Screen Negative ng/mL (Negative) 10/08/24 U Benzodiazepines Scrn Negative ng/mL (Negative) 10/08/24 Urine Cocaine Screen Negative ng/mL (Negative) 10/08/24 U Marijuana (THC) Screen Positive ng/mL (Negative) H 10/08/24 Discharge Plan Discharge Patient Disposition: Home Condition: Stable Prescriptions: Continued Classic 28 mg iron- 800 mcg tablet 1 tab PO DAILY Discharge Orders: Discharge Order (Routine); Ordered 10/09/24 Ordered By: Lela Clark Referrals: Jimy Wright MD [Physician] - 11/26/24 8:45 am Discharge Diet: Regular Discharge Activity: Increase activity as tolerated Patient Instructions: Opioid Safety Activity Restrictions/Additional Instructions: No heavy lifting pushing or pulling no sexual intercourse x 6 weeks. Discharge Attestations ACCREDITED LEGAL SECRETARY Time Spent in Discharge Care*: less than 30 min Status at Discharge: Cognitive status at discharge: cognitively intact, Behavioral status at discharge: cooperative, Coding Level of Care Code Acute Code for Chg Fwd Diagnoses Spontaneous vaginal delivery O80 Active labor at term 38 weeks gestation of Z3A.38
[2024-10-09] MEDS: PRENATAL VIT NO.130/IRON/FOLIC 1 EACH TABLET PO (09:58)
[2024-10-09] MEDS: ibuprofen 800 mg tablet PO (09:58)
[2024-10-09] MEDS: docusate sodium 100 mg Capsule PO (09:59)
[2024-10-09 10:20] VITALS: BP 119/79; PULSE 71; RESP 16; TEMP 36.8; O2SAT 97
[2024-10-09 11:13] VITALS: BP 119/79; PULSE 71; RESP 16; TEMP 36.8; O2SAT 97
== END 2024-10-09 11:13 | disposition home or self-care (01) | DRG 807 ==
LOC: OPOB 22:15 → OBGYN 22:15
PROVIDERS: Admitting Provider Obstetrics & Gynecology; PCP Nurse Practitioner Family; Visit Provider Obstetrics & Gynecology
DX: O69.81X0 Labor and delivery complicated by cord around neck, without compression, not applicable or unspecified (principal); Z37.0 Single live birth; Z3A.38 38 weeks gestation of pregnancy; O62.3 Precipitate labor
CPT/HCPCS: 36415; 59409; 80306; 85025; 85027; 86850; 86900; 99211; J2590; J7120